=== PATIENT | female | born 1960 | race African-American/Black ===

== ENCOUNTER 2018-09-28 15:47 | Observation (INO) | payer BC ==
--- NOTE | 2018-09-28 16:33 | PDOC ---
Attending Attestation - Resident Resident Name: Caryl Ledezma - ED Attending Attestation I have performed the following: I have examined & evaluated the patient, The case was reviewed & discussed with the resident, I agree w/resident's findings & plan, Exceptions are as noted - HPI HPI: 09/28/18 16:32 57yo F hx ESRD s/p renal transplant 2002 c/b failure 2014, now on HD MWF, DM, HTN, HL, L BKA, R heel wound (follows with wound care) p/w tachycardia from HD. Pt is asymptomatic otherwise. HD staff would not dialyze pt due to her tachycardia. Last had full session of HD on Monday 2 days ago. Denies CP, SOB , fevers, chills, palpitations, abd pain, n/v/d. - Physicial Exam PE: 09/28/18 18:39 agree with resident exam - Medical Decision Making 09/28/18 19:30 57yo F with MMP including ESRD, DM, HTN presents to the ED with tachycardia. PT asymptomatic otherwise. Vitals remarkable for HR of 120s, BP high in 160s systolic, vitals otherwise unremarkable. EKG with accelerated junctional rhythm at 119, no P waves. No old EKGs to compare. Initial concern for hypokalemia so 2G Cagluconate given. Potassium returned at 5.4 which is mildly elevated but unlikely to cause EKG changes. Troponin 0.45. No previous trop to compare. Case discussed with Dr. Box for HD, recommends cardiology consult. EKG discussed with and reviewed by Dr. Adler who states pt is okay to get HD as it may correct tachycardia. Pt reports 3-4 seconds of CP as ambulating to commode which self resolved. HR at the time down to 70s, pending repeat EKG. Repeat trop down to 0.4 which argues against acute cardiac process. Case discussed with Dr. Hernandez, pt accepted for admission to Dr. Orozco Case discussed in detail with admitting physician including history, physical exam and ancillary studies. Admitting physician has assumed care for the patient, will follow all pending diagnostics and will complete the evaluation and treatment. *DC/Admit/Observation/Transfer Diagnosis at time of Disposition: ESRD (end stage renal disease), Chest pain, Tachycardia - Discharge Dispostion Condition at time of disposition: Stable Decision to Admit order: Yes - Referrals - Patient Instructions - Post Discharge Activity - Attestations Physician Attestion: 09/28/18 19:56 I, Dr. Cornelius Moss MD, attest that this document has been prepared under my direction and personally reviewed by me in its entirety. I further attest, that it accurately reflects all work, treatment, procedures and medical decision -making performed by me. Heart Score/ECG Review #1 09/28/18 18:39 Twelve-lead EKG was performed and reviewed by me. Accelerated junctional rhythm , rate 119. Left axis deviation. [address] depressions in [address] elevations. No previous EKGs to compare.
[2018-09-28] MEDS ORDERED: CALCIUM GLUCONATE 10% - 1,000 MG/10 ML VIAL IVPB ONE (16:36)
[2018-09-28 16:46] LABS: BASO % 0.4 % (0-2.0); EOS % 3.6 % (0-4.5); HEMATOCRIT 36.9 % (32.4-45.2); HEMOGLOBIN 11.5 GM/dL (10.7-15.3); LYMPH % 25.1 % (8-40); MCH 26.9 pg (25.7-33.7); MCHC 31.3 g/dl (32.0-36.0); MEAN CELL VOLUME 85.9 fl (80-96); MEAN PLT VOLUME 7.1 fl (7.5-11.1); MONO % 7.4 % (3.8-10.2); NEUT % 63.5 % (42.8-82.8); PLATELET COUNT 253 K/MM3 (134-434); WHITE BLOOD COUNT 5.4 K/mm3 (4.0-10.0)
[2018-09-28] MEDS ORDERED: CALCIUM GLUCONATE 10% - 1,000 MG/10 ML VIAL ONE (16:53)
--- NOTE | 2018-09-28 17:04 | PDOC ---
History of Present Illness - General Chief Complaint: Irregular Heart Beat Stated Complaint: CHEST PAIN Time Seen by Provider: 09/28/18 15:57 History Source: Patient Exam Limitations: No Limitations - History of Present Illness Initial Comments: 09/28/18 16:59 Pt is a 57yo f with PMH of ESRD on HD MWF (anuric), DM, HTN, Left BKA (2003) BIBA from dialysis for tachycardia. Pt says she has been going to all of her dialysis appointments but was sent to ED today because her heart rate was elevated. Pt says she feels fine. She is denying chest pain, SOB, headaches, lightheadedness, cough, fever, chills, new swelling in leg, pain in legs, history of blood clot, abdominal pain, n/v/d, distension. She was recently in rehab for a wound on her R foot. She is not on blood thinners. No recent travel , no recent surgeries in the past 3 months. PMD: Kirk Lens Grinder: Mukul PMH: see hpi PSH: Left BKA 2003, Kidney transplant 2002, R foot surgery Meds: insulin, lisinopril, simvastatin, ASA 81 Social: denies Allergies: nkda Past History - Past Medical History Allergies/Adverse Reactions: Allergies Allergy/AdvReac Type Severity Reaction Status Date / Time No Known Allergies Allergy Verified 09/28/18 16:34 Home Medications: Ambulatory Orders Amitriptyline HCl [Elavil -] 75 mg PO HS 09/28/18 Ascorbic Acid [Vitamin C -] 500 mg PO DAILY 09/28/18 Aspirin [ASA -] 81 mg PO DAILY 09/28/18 Calcium Acetate 667 mg PO TID 09/28/18 HYDROmorphone [Dilaudid -] 2 mg PO Q6H 09/28/18 Hydralazine HCl 50 mg PO DAILY 09/28/18 Insulin Glargine,Hum.rec.anlog [Basaglar Taurusikpen U-100] 5 unit SQ DAILY Lisinopril [Prinivil] 10 mg PO DAILY 09/28/18 Lisinopril [Prinivil] 10 mg PO HS 09/28/18 Magnesium Hydrox 2400MG/30Ml [Milk of Magnesia -] 5 ml PO ASDIR 09/28/18 Mesalamine 1.2 gm PO BID 09/28/18 Polyethylene Glycol 3350 [Miralax (For Daily Use) -] 17 gm PO DAILY 09/28/18 Simvastatin [Zocor -] 20 mg PO HS 09/28/18 Anemia: Yes COPD: No Diabetes: Yes Dialysis: Yes GI Disorders: Yes (ESRD) Other medical history: heptitis c - Suicide/Smoking/Psychosocial Hx Smoking History: Never smoked Have you smoked in the past 12 months: No Information on smoking cessation initiated: No Hx Alcohol Use: No Drug/Substance Use Hx: No Substance Use Type: None Review of Systems - Review of Systems Constitutional: No: Chills, Diaphoresis, Fever HEENTM: No: Symptoms Reported, Eye Pain, Blurred Vision, Tinnitus Respiratory: No: Cough, Shortness of Breath, Hemoptysis Cardiac (ROS): No: Chest Pain, Lightheadedness, Palpitations, Syncope ABD/GI: Yes: Constipated. No: Diarrhea, Nausea, Rectal Bleeding, Vomiting : Yes: Other (anuric) Musculoskeletal: No: Back Pain, Joint Pain, Muscle Pain, Neck Pain Integumentary: No: Symptoms Reported Neurological: No: Headache, Numbness, Paresthesia, Tingling, Tremors, Weakness *Physical Exam - Vital Signs Last Vital Signs Temp Pulse Resp BP Pulse Ox 97.9 F 120 H 20 164/96 100 09/28/18 15:47 09/28/18 15:47 09/28/18 15:47 09/28/18 15:47 09/28/18 15:47 - Physical Exam General Appearance: Yes: Appropriately Dressed, Obese. No: Apparent Distress HEENT: positive: EOMI, EMERY, Normal ENT Inspection Neck: positive: Trachea midline, Supple. negative: Carotid bruit, Lymphadenopathy (R), Lymphadenopathy (L) Respiratory/Chest: positive: Decreased Breath Sounds. negative: Crackles, Rales , Rhonchi, Stridor, Wheezing Cardiovascular: positive: S1, S2, Tachycardia. negative: Edema, JVD, Murmur Vascular Pulses: Carotid (R): 2+, Carotid (L): 2+, Dorsalis-Pedis (R): 1+ Gastrointestinal/Abdominal: positive: Normal Bowel Sounds, Distended. negative : Guarding, Rebound, Tenderness Musculoskeletal: positive: Other (L BKA). negative: CVA Tenderness Extremity: positive: Normal Capillary Refill, Swelling (up to R midcalf. 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, Fully Oriented, Alert, Normal Mood/ Affect, Normal Response, Motor Strength 03/24 ED Treatment Course - LABORATORY CBC & Chemistry Diagram: 09/28/18 16:36 09/28/18 16:36 - ADDITIONAL ORDERS Additional order review: 09/28/18 16:36 RBC 4.30 MCV 85.9 MCHC 31.3 L RDW 20.0 H MPV 7.1 L Neutrophils % 63.5 Lymphocytes % 25.1 Monocytes % 7.4 Eosinophils % 3.6 Basophils % 0.4 - RADIOLOGY Radiology Studies Ordered: Category Date Time Status CHEST X-RAY PORTABLE* [RAD] Stat Radiology 09/28/18 16:28 Ordered Medical Decision Making - Medical Decision Making 09/28/18 17:04 Pt is a 57yo f with PMH of ESRD on HD MWF (anuric), DM, HTN, Left BKA (2003) BIBA from dialysis for tachycardia. Pt says she has been going to all of her dialysis appointments but was sent to ED today because her heart rate was elevated. Pt says she feels fine. Vitals: Selected Entries 09/28/18 15:47 Temperature 97.9 F Pulse Rate 120 H Respiratory 20 Rate Blood Pressure 164/96 O2 Sat by Pulse 100 RA Oximetry (%) PE: L BKA. R heel clean wound (last wound check yesterday). Normal heart sounds, tachycardia. Decreased breath sounds DDx: acs, PE, pna, electrolyte abnormalities -EKG: No discernable p waves. tachycardia. Inverted T waves in I, aVL. Peaked T in V3? Cannot calculate [place]. QRS 96, QTc 483. No SO or depressions *No prior to compare to* Pt started on calcium gluconate. CBC, CMP, trop, cxr pending. 09/28/18 18:17 Laboratory Tests 09/28/18 09/28/18 09/28/18 16:36 16:36 16:36 WBC 5.4 Hgb 11.5 Hct 36.9 Plt Count 253 PT with INR 11.80 INR 1.00 PTT (Actin FS) 31.7 Sodium 137 Potassium 5.4 H BUN 89 H Creatinine 11.9 H* Random Glucose 122 H Calcium 8.8 Phosphorus > 9.0 H* Magnesium 2.8 H Alkaline Phosphatase 168 H Troponin I Albumin 3.2 L 09/28/18 16:36 WBC Hgb Hct Plt Count PT with INR INR PTT (Actin FS) Sodium Potassium BUN Creatinine Random Glucose Calcium Phosphorus Magnesium Alkaline Phosphatase Troponin I 0.45 H Albumin second troponin being drawn. PT will be admitted for ACS r/o and dialysis. PE on differential, low suspicion however because pt is saturating at 100% RA, not tachypenic, normotensive. No recent surgeries, no history of cancer. Is ambulatory with walker. 09/28/18 18:[address] Goldberg, recommended cards consult. 09/28/18 18:59 Dr. Adler called. Will trend trop. Pt now complaining of chest pain. Will give ASA. 09/28/18 19:05 Pt needed to use restroom, giving comode for pt to use, I am not comfortable with disconnecting her from monitor. HR 79. Will get repeat EKG 09/28/18 19:[address] Adler, can get HD. Thinks rhythm may correct after HD. Will call Dr. Box again. Will get pt to dialysis. 09/28/18 19:30 Pt trop sent. HR in 80s. 09/28/18 20:13 second trop 0.4. Pt admitted to Tele dialysis. 09/29/18 01:14 *DC/Admit/Observation/Transfer Diagnosis at time of Disposition: ESRD (end stage renal disease), Chest pain, Tachycardia - Discharge Dispostion Condition at time of disposition: Stable - Referrals - Patient Instructions - Post Discharge Activity
[2018-09-28 17:20] LABS: PROTHROMBIN TIME (PATIENT) 11.8 SEC (9.7-13.0)
[2018-09-28 17:22] LABS: ACTIVATED PTT 31.7 SECONDS (25.2-36.5)
[2018-09-28 17:52] LABS: CO2 22 mmol/L (22-28)
[2018-09-28 17:55] LABS: ALBUMIN 3.2 g/dl (3.4-5.0); ALK PHOS 168 U/L (45-117); ANION GAP 14 MMOL/L (8-16); BILIRUBIN,TOTAL 0.3 mg/dL (0.2-1); BLOOD UREA NITROGEN 89 mg/dL (7-18); CALCIUM 8.8 mg/dL (8.5-10.1); CHLORIDE 101 mmol/L (98-107); GLUCOSE,RANDOM 122 mg/dL (74-106); MAGNESIUM 2.8 mg/dL (1.8-2.4); POTASSIUM 5.4 mmol/L (3.5-5.1); SGOT/AST 18 U/L (15-37); SGPT/ALT 22 U/L (13-61); SODIUM 137 mmol/L (136-145); TOT PROT 7.6 g/dl (6.4-8.2)
[2018-09-28 17:59] LABS: CREATININE 11.9 mg/dL (0.55-1.3); PHOSPHOROUS > 9.0 mg/dL (2.5-4.9)
[2018-09-28] MEDS ORDERED: ASPIRIN 81 MG CHEWABLE TABLETS PO ONE (18:58)
--- NOTE | 2018-09-28 19:36 | PDOC ---
*Physical Exam - Vital Signs Last Vital Signs Temp Pulse Resp BP Pulse Ox 97.9 F 120 H 20 164/96 100 09/28/18 15:47 09/28/18 15:47 09/28/18 15:47 09/28/18 15:47 09/28/18 15:47 ED Treatment Course - LABORATORY CBC & Chemistry Diagram: 09/28/18 16:36 09/28/18 16:36 - ADDITIONAL ORDERS Additional order review: Laboratory Results 09/28/18 09/28/18 09/28/18 16:36 16:36 16:36 PT with INR 11.80 INR 1.00 PTT (Actin FS) 31.7 Sodium 137 Potassium 5.4 H Chloride 101 Carbon Dioxide 22 Anion Gap 14 BUN 89 H Creatinine 11.9 H* Creat Clearance w eGFR 3.28 Random Glucose 122 H Calcium 8.8 Phosphorus > 9.0 H* Magnesium 2.8 H Total Bilirubin 0.3 AST 18 ALT 22 Alkaline Phosphatase 168 H Troponin I 0.45 H Total Protein 7.6 Albumin 3.2 L 09/28/18 16:36 RBC 4.30 MCV 85.9 MCHC 31.3 L RDW 20.0 H MPV 7.1 L Neutrophils % 63.5 Lymphocytes % 25.1 Monocytes % 7.4 Eosinophils % 3.6 Basophils % 0.4 - Medications Given in the ED: ED Medications Discontinued Medications Generic Name Dose Route Start Last Admin Trade Name Freq PRN Reason Stop Dose Admin Calcium Gluconate 2,000 mg 09/28/18 16:36 09/28/18 17:04 Calcium Gluconate 10% - IVPB 09/28/18 16:37 2,000 mg ONCE ONE Administration Medical Decision Making - Medical Decision Making 09/28/18 19:35 I received pt on signout. Pt was in accelerated juntional rhythm. Unclear what the cause of the rhythm is. However, pt converted, now repeat EKG shows 1st degree AV block with a HR of 77. Pt will be admitted, and Dr. Box agrees that pt will get dialyzed in the hospital during this admission. 09/29/18 04:48 *DC/Admit/Observation/Transfer Diagnosis at time of Disposition: ESRD (end stage renal disease), Chest pain, Tachycardia - Discharge Dispostion Condition at time of disposition: Stable - Referrals - Patient Instructions - Post Discharge Activity
--- NOTE | 2018-09-28 19:52 | PN ---
Teaching Attending Note Name of Resident: Hero Hernandez ATTENDING PHYSICIAN STATEMENT I saw and evaluated the patient. I reviewed the resident's note and discussed the case with the resident. I agree with the resident's findings and plan as documented. SUBJECTIVE: Patient is a 57 year old woman with history of ESRD, failed kidney transplant now on HD MWF, NIDDM, HTN, HLD, Left BKA (2003) and right heel ulcer brought from [facility] for tachycardia. She was sent to ER today because her heart rate was elevated and she was not dialyzed. Says she feels fine. She is denying chest pain, SOB, headaches, lightheadedness, cough, fever, chills, new swelling in leg, pain in legs, history of blood clot, abdominal pain or vomiting. She was recently in Rehab for a wound on her Right foot. She is not on blood thinners. No recent travel, no recent surgeries in the past 3 months. Initial EKG in the ER showed accelerated junctional rhythm, rate 119. Subsequently she reverted to NSR without any treatment. OBJECTIVE: Alert Vital Signs Period Temp Pulse Resp BP Sys/Pillai Pulse Ox Last 24 Hr 97.9 F 120 20 164/96 100 HEENT: No Jaundice, eye redness or discharge, PERRLA, EOMI. Normocephalic, atraumatic. External ears are normal and hearing is grossly intact. No nasal discharge. Neck: Supple, nontender. No palpable adenopathy or thyromegaly. No JVD Chest: Good effort. Clear to auscultation and percussion. Heart: Regular. No S3 or rub; 2/6 SHABBIR Abdomen: Not distended, soft, nontender and no HSM. No rebound or guarding. Normoactive bowel sounds. Ext: Peripheral pulses intact. Left BKA, right heel ulcer. Skin: Warm and dry. No petechiae, rash or ecchymosis. Neuro: Alert. Oriented x3. CN 2-12 grossly intact. Sensation grossly intact in all four extremities and DTR are symmetric. Home Medications Medication Instructions Recorded Amitriptyline HCl [Elavil -] 75 mg PO HS 09/28/18 Ascorbic Acid [Vitamin C -] 500 mg PO DAILY 09/28/18 Aspirin [ASA -] 81 mg PO DAILY 09/28/18 Calcium Acetate 667 mg PO TID 09/28/18 HYDROmorphone [Dilaudid -] 2 mg PO Q6H 09/28/18 Hydralazine HCl 50 mg PO DAILY 09/28/18 Insulin Glargine,Hum.rec.anlog 5 unit SQ DAILY 09/28/18 [Basagltracee Bradleypen U-100] Lisinopril [Prinivil] 10 mg PO DAILY 09/28/18 Lisinopril [Prinivil] 10 mg PO HS 09/28/18 Magnesium Hydrox 2400MG/30Ml [Milk 5 ml PO ASDIR 09/28/18 of Magnesia -] Mesalamine 1.2 gm PO BID 09/28/18 Polyethylene Glycol 3350 [Miralax 17 gm PO DAILY 09/28/18 (For Daily Use) -] Simvastatin [Zocor -] 20 mg PO HS 09/28/18 Abnormal Lab Results 09/28/18 09/28/18 09/28/18 16:36 16:36 16:36 MCHC 31.3 L RDW 20.0 H MPV 7.1 L Potassium 5.4 H BUN 89 H Creatinine 11.9 H* Random Glucose 122 H Phosphorus > 9.0 H* Magnesium 2.8 H Alkaline Phosphatase 168 H Troponin I 0.45 H Albumin 3.2 L ASSESSMENT AND PLAN: 1. Rule out ACS - In view of tachycardia and elevated initial troponin (0.45) will admit to Telemetry to rule out ACS. No significant ST-T changes on EKG. Get ECHO and consult cardiology. Will restart her home antihypertensive medications. Consult Nephrology to arrange for dialysis LUCAS and stress adequate dialytic fluid removal to control hypertension. There are no changes of toxic hyperkalemia on EKG. Ensure that she gets phosphate binders with meals. 2. Hypoalbuminemia - Possibly due to combined effects of malnutrition and inflammation associated with her comorbid chronic conditions. Will ensure adequate dietary protein intake of at least 1.5 gm/Kg BW per day. Consult quality control checker. 3. DM - For now, we will hold the home diabetes drugs and implement sliding scale insulin regimen. Provide comprehensive diabetes care with patient teaching and counseling about the importance of euglycemia, eye care and foot care. 4. Obesity - Will provide patient all the necessary assistance, counseling and positive reinforcement to facilitate weight loss. Consult quality control checker. 5. DVT prophylaxis - Heparin 5000u sq tid. 6. Advance directives - Full code
[2018-09-28] MEDS ORDERED: ASPIRIN 81 MG CHEWABLE TABLETS ONE (20:25)
--- NOTE | 2018-09-28 20:45 | CONSULT ---
Consult Consult Specialty:: Nephrology Reason for Consultation:: ESRD on HD - History of Present Illness Chief Complaint: sent in for tachycardia History of Present Illness: Pt is a 57 year old female with pmhx of kidney transplant in 2002, ESRD on HD, DM, HTN, HLD, left BKA and CHF who was sent in from HD for tachyardia. She is awake and alert. SHe denies shortness of breath. She denies chest pain and she denies palpitations. Her last HD session was on Monday. She denies fevers or chills. SHe is accompanied with her . I also called her daughter for history. Pt goes to HD at the [facility] unit. She was found to have a junctional rythm. Cardiology did evaluate the ECG and recommended HD therapy. Pts rate is now in the 70s. - History Source History Provided By: Patient - Past Medical History Cardio/Vascular: Yes: CAD, CHF, HTN Renal/: Yes: Renal Failure, Hemodialysis Musculoskeletal: Yes: Other (left bka) Endocrine: Yes: Diabetes Mellitus - Alcohol/Substance Use Hx Alcohol Use: No - Smoking History Smoking history: Never smoked Have you smoked in the past 12 months: No Home Medications - Allergies Allergies/Adverse Reactions: Allergies Allergy/AdvReac Type Severity Reaction Status Date / Time No Known Allergies Allergy Verified 09/28/18 16:34 - Home Medications Home Medications: Ambulatory Orders Amitriptyline HCl [Elavil -] 75 mg PO HS 09/28/18 Ascorbic Acid [Vitamin C -] 500 mg PO DAILY 09/28/18 Aspirin [ASA -] 81 mg PO DAILY 09/28/18 Calcium Acetate 667 mg PO TID 09/28/18 HYDROmorphone [Dilaudid -] 2 mg PO Q6H 09/28/18 Hydralazine HCl 50 mg PO DAILY 09/28/18 Insulin Glargine,Hum.rec.anlog [Basaglar Kwikpen U-100] 5 unit SQ DAILY Lisinopril [Prinivil] 10 mg PO DAILY 09/28/18 Lisinopril [Prinivil] 10 mg PO HS 09/28/18 Magnesium Hydrox 2400MG/30Ml [Milk of Magnesia -] 5 ml PO ASDIR 09/28/18 Mesalamine 1.2 gm PO BID 09/28/18 Polyethylene Glycol 3350 [Miralax (For Daily Use) -] 17 gm PO DAILY 09/28/18 Simvastatin [Zocor -] 20 mg PO HS 09/28/18 Family Disease History - Family Disease History Family History: Denies Review of Systems - Review of Systems Constitutional: reports: No Symptoms Eyes: reports: No Symptoms HENT: reports: No Symptoms Neck: reports: No Symptoms Cardiovascular: reports: No Symptoms Respiratory: reports: No Symptoms Gastrointestinal: reports: No Symptoms Genitourinary: reports: No Symptoms Musculoskeletal: reports: No Symptoms Integumentary: reports: No Symptoms Neurological: reports: No Symptoms Endocrine: reports: No Symptoms Hematology/Lymphatic: reports: No Symptoms Psychiatric: reports: No Symptoms Physical Exam Vital Signs: Vital Signs Temperature 97.9 F 09/28/18 15:47 Pulse Rate 120 H 09/28/18 15:47 Respiratory Rate 20 09/28/18 15:47 Blood Pressure 164/96 09/28/18 15:47 O2 Sat by Pulse Oximetry (%) 100 09/28/18 15:47 Constitutional: Yes: Calm Eyes: Yes: Conjunctiva Clear HENT: Yes: Atraumatic Cardiovascular: Yes: S1, S2 Respiratory: Yes: CTA Bilaterally Gastrointestinal: Yes: Soft, Abdomen, Obese Renal/: Yes: WNL Musculoskeletal: Yes: Other (left bka) Edema: Yes Edema: RLE: 1+ Neurological: Yes: Oriented Psychiatric: Yes: Oriented Labs: CBC, BMP 09/28/18 16:36 09/28/18 16:36 Laboratory Tests 09/28/18 09/28/18 16:36 16:36 Hgb 11.5 Sodium 137 Potassium 5.4 H BUN 89 H Creatinine 11.9 H* Imaging - Results Chest X-ray: Report Reviewed Problem List - Problems (1) ESRD (end stage renal disease) Code(s): N18.6 - END STAGE RENAL DISEASE (2) CHF (congestive heart failure) Code(s): I50.9 - HEART FAILURE, UNSPECIFIED (3) Hyperkalemia Code(s): E87.5 - HYPERKALEMIA Assessment/Plan Impression 1. ESRD 2. hyperkalemia 3. HTN 4. CAD 5. failed kidney transplant 6. tachycardia with junctional rythm 7. DM 8. HLD Plan - will arrange for urgent HD - admit pt to monitored unit - will dialyze at bedside in tele - rate is improved - monitor bp closely - resume phos binders - check phos levels - will UF volume as she has congestion on cxr
--- NOTE | 2018-09-28 21:12 | HP ---
CHIEF COMPLAINT:sent from dialysis PCP: HISTORY OF PRESENT ILLNESS: 57 F with PMHx ESRD( HD MWF),DM, and HTN sent from Dialysis Center for tachycardia. Dialysis was not done secondary to elevated HR. She has no complaints. She was recently in discharged from Rehab 2 weeks ago for a wound on her Right foot. She denies CP,MCKENNA, SOB, abdominal pain, nausea, vomiting, fever, chills, or palpitations. No recent illness or sick contacts. She is sent here for urgent dialysis. ER course was notable for: (1)EKG show accelertaed junctional rythm (2)K+= 5.5 given calcium gluconate (3) Recent Travel:denies PAST MEDICAL HISTORY: DM, ESRD (HD MWF), HTN, HLD PAST SURGICAL HISTORY:Left BKA, right foot debridement x2, Lower ext. vein graft , Renal transplant Social History: Smoking:never Alcohol:denies Drugs: denies Family History: Allergies No Known Allergies Allergy (Verified 09/28/18 16:34) HOME MEDICATIONS: Home Medications Medication Instructions Recorded Amitriptyline HCl [Elavil -] 75 mg PO HS 09/28/18 Ascorbic Acid [Vitamin C -] 500 mg PO DAILY 09/28/18 Aspirin [ASA -] 81 mg PO DAILY 09/28/18 Calcium Acetate 667 mg PO TID 09/28/18 HYDROmorphone [Dilaudid -] 2 mg PO Q6H 09/28/18 Hydralazine HCl 50 mg PO DAILY 09/28/18 Insulin Glargine,Hum.rec.anlog 5 unit SQ DAILY 09/28/18 [Basaglar Kwikpen U-100] Lisinopril [Prinivil] 10 mg PO DAILY 09/28/18 Lisinopril [Prinivil] 10 mg PO HS 09/28/18 Magnesium Hydrox 2400MG/30Ml [Milk 5 ml PO ASDIR 09/28/18 of Magnesia -] Mesalamine 1.2 gm PO BID 09/28/18 Polyethylene Glycol 3350 [Miralax 17 gm PO DAILY 09/28/18 (For Daily Use) -] Simvastatin [Zocor -] 20 mg PO HS 09/28/18 REVIEW OF SYSTEMS CONSTITUTIONAL: Absent: fever, chills, diaphoresis, generalized weakness, malaise, loss of appetite, weight change HEENT: Absent: rhinorrhea, nasal congestion, throat pain, throat swelling, difficulty swallowing, mouth swelling, ear pain, eye pain, visual changes CARDIOVASCULAR: Absent: chest pain, syncope, palpitations, irregular heart rate, lightheadedness , peripheral edema RESPIRATORY: Absent: cough, shortness of breath, dyspnea with exertion, orthopnea, wheezing, stridor, hemoptysis GASTROINTESTINAL: Absent: abdominal pain, abdominal distension, nausea, vomiting, diarrhea, constipation, melena, hematochezia GENITOURINARY: Absent: dysuria, frequency, urgency, hesitancy, hematuria, flank pain, genital pain MUSCULOSKELETAL: Absent: myalgia, arthralgia, joint swelling, back pain, neck pain SKIN: Absent: rash, itching, pallor HEMATOLOGIC/IMMUNOLOGIC: Absent: easy bleeding, easy bruising, lymphadenopathy, frequent infections ENDOCRINE: Absent: unexplained weight gain, unexplained weight loss, heat intolerance, cold intolerance NEUROLOGIC: Absent: headache, focal weakness or paresthesias, dizziness, unsteady gait, seizure, mental status changes, bladder or bowel incontinence PSYCHIATRIC: Absent: anxiety, depression, suicidal or homicidal ideation, hallucinations. PHYSICAL EXAMINATION Vital Signs - 24 hr 09/28/18 09/28/18 15:47 20:48 Temperature 97.9 F Pulse Rate 120 H Respiratory 20 Rate Blood Pressure 164/96 O2 Sat by Pulse 100 99 Oximetry (%) GENERAL: AAOx3, NAD HEAD: NCAT EYES: PERRLA,EOMI sclera anicteric, conjunctiva clear. No lid lag. EARS, NOSE, THROAT: Moist mucous membranes. NECK: Supple without lymphadenopathy, JVD, or masses. LUNGS: CTAB, No wheezes, and no crackles. No accessory muscle use. HEART: RRR, normal S1 and S2 without murmur, rub or gallop. ABDOMEN: Soft,obese, nontender, not distended, normoactive bowel sounds, no guarding, no rebound, no masses. No hepatomegaly or splenomegaly. MUSCULOSKELETAL: left bka, no CVA tenderness. UPPER EXTREMITIES: fistula RUE LOWER EXTREMITIES: Left BKA, right heal ulcer, 40cm scar on right leg from vein graft. NEUROLOGICAL: Cranial nerves II-XII intact. Normal speech. PSYCHIATRIC: Cooperative. Good eye contact. Appropriate mood and affect. Laboratory Results - last 24 hr 09/28/18 09/28/1809/28/18 16:36 16:36 16:36 WBC 5.4 RBC 4.30 Hgb 11.5 Hct 36.9 MCV 85.9 MCH 26.9 MCHC 31.3 L RDW 20.0 H Plt Count 253 MPV 7.1 L Absolute Neuts (auto) 3.4 Neutrophils % 63.5 Lymphocytes % 25.1 Monocytes % 7.4 Eosinophils % 3.6 Basophils % 0.4 Nucleated RBC % 0 PT with INR 11.80 INR 1.00 PTT (Actin FS) 31.7 Sodium 137 Potassium 5.4 H Chloride 101 Carbon Dioxide 22 Anion Gap 14 BUN 89 H Creatinine 11.9 H* Creat Clearance w eGFR 3.28 Random Glucose 122 H Calcium 8.8 Phosphorus > 9.0 H* Magnesium 2.8 H Total Bilirubin 0.3 AST 18 ALT 22 Alkaline Phosphatase 168 H Troponin I Total Protein 7.6 Albumin 3.2 L 09/28/18 09/28/18 16:36 19:26 WBC RBC Hgb Hct MCV MCH MCHC RDW Plt Count MPV Absolute Neuts (auto) Neutrophils % Lymphocytes % Monocytes % Eosinophils % Basophils % Nucleated RBC % PT with INR INR PTT (Actin FS) Sodium Potassium Chloride Carbon Dioxide Anion Gap BUN Creatinine Creat Clearance w eGFR Random Glucose Calcium Phosphorus Magnesium Total Bilirubin AST ALT Alkaline Phosphatase Troponin I 0.45 H 0.40 H Total Protein Albumin ASSESSMENT/PLAN: 57 year old woman with history of ESRD, 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 Problem List - Problem (1) Elevated troponin Assessment/Plan: Will r/o ACS * place on telemetry * repeat troponin I Q6h * Cardiology consult * repeat EKG in AM (2) ESRD (end stage renal disease) Assessment/Plan: will go for emergent dialysis * Nephrology consult appreciated. * continue phosphate binders. (3) Hyperkalemia Assessment/Plan: given calcium gluconate in ED. * Will by dialyzed now * repeat BMP in AM (4) HTN (hypertension) Assessment/Plan: * Hydralazine HCl (Apresoline -) 50 mg PO DAILY * Lisinopril held * monitor BP (5) HLD (hyperlipidemia) Assessment/Plan: continue Statin therapy. (6) DM type 2 causing ESRD Assessment/Plan: will be dialyzed today. * ADA diet * BGM ACHS * ISS ACHS (7) DVT prophylaxis Assessment/Plan: heparin 5000units TID Visit type - Emergency Visit Emergency Visit: Yes ED Registration Date: 09/28/18 Care time: The patient presented to the Emergency Department on the above date and was hospitalized for further evaluation of their emergent condition. - New Patient This patient is new to me today: Yes Date on this admission: 10/01/18 - Critical Care Critical Care patient: No
[2018-09-28] MEDS: CALCIUM ACETATE 667 MG CAPSULE (FP) PO SCH (22:00)
[2018-09-28] MEDS ORDERED: PATIENT'S OWN MEDICATION (NON-FORMULARY) (Mesalamine [Mesalamine] 1.2 GM) PO SCH (22:00)
[2018-09-28] MEDS: HYDROmorphone HCL 2 MG TABLET PO SCH (22:00)
[2018-09-28] MEDS: AMITRIPTYLINE HCL 75 MG TABLET PO SCH (22:00)
[2018-09-28] MEDS: ATORVASTATIN CA 10 MG TABLET (FP) PO SCH (22:00)
[2018-09-28] MEDS: INSULIN SLIDING SCALE (NOVOLOG) 1 VIAL SQ SCH (22:00)
[2018-09-28] MEDS ORDERED: SODIUM CHLORIDE 250 ML IV PRN (22:28)
[2018-09-29] MEDS: HYDROmorphone HCL 2 MG TABLET PO SCH ×4 (02:07→22:27)
[2018-09-29 03:47] VITALS: BMI 39.9
[2018-09-29] MEDS: INSULIN SLIDING SCALE (NOVOLOG) 1 VIAL SQ SCH ×4 (06:15→22:31)
[2018-09-29] MEDS: CALCIUM ACETATE 667 MG CAPSULE (FP) PO SCH ×3 (06:16→22:27)
[2018-09-29] MEDS: HEPARIN NA (PORCINE) 5,000 UNITS/ML 1ML VIAL SQ SCH ×3 (06:16→22:28)
[2018-09-29 07:36] LABS: BASO % 0.7 % (0-2.0); EOS % 3.9 % (0-4.5); HEMATOCRIT 32.7 % (32.4-45.2); LYMPH % 34.1 % (8-40); MCH 26.2 pg (25.7-33.7); MCHC 30.7 g/dl (32.0-36.0); MEAN CELL VOLUME 85.1 fl (80-96); MEAN PLT VOLUME 7.1 fl (7.5-11.1); MONO % 9.5 % (3.8-10.2); NEUT % 51.8 % (42.8-82.8); PLATELET COUNT 205 K/MM3 (134-434); RBC 3.83 M/mm3 (3.60-5.2); WHITE BLOOD COUNT 4.2 K/mm3 (4.0-10.0)
[2018-09-29 08:17] LABS: ALBUMIN 2.8 g/dl (3.4-5.0); ALK PHOS 172 U/L (45-117); ANION GAP 10 MMOL/L (8-16); BILIRUBIN,TOTAL 0.3 mg/dL (0.2-1); BLOOD UREA NITROGEN 52 mg/dL (7-18); CALCIUM 8.1 mg/dL (8.5-10.1); CHLORIDE 101 mmol/L (98-107); CO2 27 mmol/L (21-32); GLUCOSE,RANDOM 188 mg/dL (74-106); MAGNESIUM 2.2 mg/dL (1.8-2.4); PHOSPHOROUS 6.6 mg/dL (2.5-4.9); POTASSIUM 4.3 mmol/L (3.5-5.1); SGOT/AST 17 U/L (15-37); SGPT/ALT 20 U/L (13-61); SODIUM 138 mmol/L (136-145); TOT PROT 6.9 g/dl (6.4-8.2)
[2018-09-29 08:36] LABS: CREATININE 8.1 mg/dL (0.55-1.3)
--- NOTE | 2018-09-29 08:56 | PN ---
Physical Exam: SUBJECTIVE: Patient seen and examined at bed side , had urgent HD session last night with no complication denies any fever,chills, N/V/D/C. Cr today 8.1 after HD , next on Monday OBJECTIVE: Vital Signs Period Temp Pulse Resp BP Sys/Pillai Pulse Ox Last 24 Hr 97.1 F-98.3 F 63-120 18-21 134-189/52-96 98-100 GENERAL: AAOx3 in NAD HEAD: NC/AT EYES: PERRL, extraocular movements intact, sclera anicteric, ENT:moist mucous membranes. NECK:supple. FROM LUNGS: CTA B/L , no wheezes, no crackles, no accessory muscle use. HEART: Regular rate and rhythm, S1, S2 , 2/6 systolic murmur RUSB ,No rub or gallop. ABDOMEN: Obese , Soft, ND,NT , normoactive bowel sounds, no guarding, no rebound, EXTREMITIES: , warm, well-perfused, right leg +2 edema. Left DKA , right ankle with wound covered with gauze NEUROLOGICAL: no focal deficit . Normal speech, PSYCH: Normal mood, normal affect. SKIN: Warm, dry, normal turgor, Laboratory Results - last 24 hr 09/28/18 09/28/18 09/28/18 16:36 16:36 16:36 WBC 5.4 RBC 4.30 Hgb 11.5 Hct 36.9 MCV 85.9 MCH 26.9 MCHC 31.3 L RDW 20.0 H Plt Count 253 MPV 7.1 L Absolute Neuts (auto) 3.4 Neutrophils % 63.5 Lymphocytes % 25.1 Monocytes % 7.4 Eosinophils % 3.6 Basophils % 0.4 Nucleated RBC % 0 PT with INR 11.80 INR 1.00 PTT (Actin FS) 31.7 Sodium 137 Potassium 5.4 H Chloride 101 Carbon Dioxide 22 Anion Gap 14 BUN 89 H Creatinine 11.9 H* Creat Clearance w eGFR 3.28 POC Glucometer Random Glucose 122 H Calcium 8.8 Phosphorus > 9.0 H* Magnesium 2.8 H Total Bilirubin 0.3 AST 18 ALT 22 Alkaline Phosphatase 168 H Troponin I Total Protein 7.6 Albumin 3.2 L 09/29/18 09/29/18 09/29/18 06:13 07:15 07:15 WBC 4.2 RBC 3.83 Hgb 10.0 L Hct 32.7 MCV 85.1 MCH 26.2 MCHC 30.7 L RDW 20.0 H Plt Count 205 MPV 7.1 L Absolute Neuts (auto) 2.2 Neutrophils % 51.8 Lymphocytes % 34.1 D Monocytes % 9.5 Eosinophils % 3.9 Basophils % 0.7 Nucleated RBC % 0 PT with INR INR PTT (Actin FS) Sodium 138 Potassium 4.3 Chloride 101 Carbon Dioxide 27 Anion Gap 10 BUN 52 H Creatinine 8.1 H* Creat Clearance w eGFR 5.11 POC Glucometer 233 Random Glucose 188 H Calcium 8.1 L Phosphorus 6.6 H Magnesium 2.2 Total Bilirubin 0.3 AST 17 ALT 20 Alkaline Phosphatase 172 H Troponin I Total Protein 6.9 Albumin 2.8 L Active Medications Generic Name Dose Route Start Last Admin Trade Name Freq PRN Reason Stop Dose Admin Amitriptyline HCl 75 mg 09/28/18 22:00 09/28/18 22:00 Elavil - PO Not Given HS MILADIS Ascorbic Acid 500 mg 09/29/18 10:00 Vitamin C - PO DAILY [facility] Aspirin 81 mg 09/29/18 10:00 Asa - PO DAILY [facility] Atorvastatin Calcium 10 mg 09/28/18 22:00 09/28/18 22:00 Lipitor - PO Not Given HS [facility]ADIS Calcium Acetate 667 mg 09/28/18 22:00 09/29/18 06:16 Phoslo - PO 667 mg TID [facility]IS Administration Heparin Sodium (Porcine) 5,000 unit 09/29/18 06:00 09/29/18 06:16 Heparin - SQ 5,000 unit TID [facility] Administration Hydralazine HCl 50 mg 09/29/18 10:00 Apresoline - PO DAILY [facility] Hydromorphone HCl 2 mg 09/28/18 21:00 09/29/18 02:07 Dilaudid - PO 2 mg Q6H [facility] Administration Sodium Chloride 250 mls @ 3,000 mls/hr 09/28/18 22:28 Normal Saline - IV 09/29/18 22:27 PRN PRN Hypotension during Dialysis Insulin Aspart 1 vial 09/28/18 22:00 09/29/18 06:15 Novolog Vial Sliding Scale - SQ 4 units ACHS [facility]ADIS Administration Protocol Non-Formulary Medication 1.2 gm 09/28/18 22:00 Mesalamine [Mesalamine] PO BID [facility]IS Polyethylene Glycol 17 gm 09/29/18 10:00 Miralax (For Daily Use) - PO DAILY [facility]IS CBC, BMP 09/29/18 07:15 09/29/18 07:15 ASSESSMENT/PLAN: 57 year old woman with history of ESRD, 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 #Elevated troponin, likely demand ischemia , Will r/o ACS * place on telemetry * repeat troponin I Q6h * Cardiology consult * repeat EKG in AM # Junctional Rhythm * noted on monitor * cardiology consulted recommend No BB and rythm monitor as out pt * EKG NSR with first degree AV block # ESRD (end stage renal disease) * emergent dialysis * next HD Monday * renal diet * Nephrology consult appreciated. Dr. Box * monitor volume status # Hyperkalemia, resolved after HD * given calcium gluconate in ED. * repeat BMP in AM #HTN (hypertension) * Hydralazine HCl (Apresoline -) 50 mg PO DAILY * Lisinopril held * monitor BP closely #HLD (hyperlipidemia) * continue Statin therapy. #DM type 2 * Had HD last night * ADA diet * BGM ACHS * ISS ACHS #DVT prophylaxis * heparin 5K units TID #Dispo : * monitor on tele * possible Dc tomorrow pending cardiology clearance Visit type - Emergency Visit Emergency Visit: Yes ED Registration Date: 09/28/18 Care time: The patient presented to the Emergency Department on the above date and was hospitalized for further evaluation of their emergent condition. - New Patient This patient is new to me today: Yes Date on this admission: 09/29/18 - Critical Care Critical Care patient: No - Discharge Referral Referred to [facility] No
[2018-09-29] MEDS: ASPIRIN 81 MG CHEWABLE TABLETS PO SCH (10:47)
[2018-09-29] MEDS: ASCORBIC ACID 500 MG TABLET (FP) PO SCH (10:48)
[2018-09-29] MEDS: hydrALAZINE HCL 50 MG TABLET (FP) PO SCH (10:48)
[2018-09-29] MEDS: POLYETHYLENE GLYCOL 3350 119 GM BTL PO SCH (10:50)
--- NOTE | 2018-09-29 14:43 | CON.CARD ---
Consult Consult Specialty:: Cardiology Reason for Consultation:: Tachycardia at the dialysis center - History of Present Illness Chief Complaint: Tachycardia at the dialysis center History of Present Illness: This is a 57 year old female with ESRD and is s/p renal transplant 2002 which failed in 2014, now on HD, PMH of M, HTN, HL, L BKA, R heel wound. She was sent from a dialysis center with junctional tachycardia. Dialysis last night was hemodynamically tolerated. K+ was 5.4. Trops 0.4, 0.42, and 0.34 . - Past Medical History Cardio/Vascular: Yes: CAD, CHF, HTN Renal/: Yes: Renal Failure, Hemodialysis ...: No Musculoskeletal: Yes: Other (left bka) Endocrine: Yes: Diabetes Mellitus - Alcohol/Substance Use Hx Alcohol Use: No - Smoking History Smoking history: Never smoked Have you smoked in the past 12 months: No Home Medications - Allergies Allergies/Adverse Reactions: Allergies Allergy/AdvReac Type Severity Reaction Status Date / Time No Known Allergies Allergy Verified 09/28/18 16:34 - Home Medications Home Medications: Ambulatory Orders Amitriptyline HCl [Elavil -] 75 mg PO HS 09/28/18 Ascorbic Acid [Vitamin C -] 500 mg PO DAILY 09/28/18 Aspirin [ASA -] 81 mg PO DAILY 09/28/18 Calcium Acetate 667 mg PO TID 09/28/18 HYDROmorphone [Dilaudid -] 2 mg PO Q6H 09/28/18 Hydralazine HCl 50 mg PO DAILY 09/28/18 Insulin Glargine,Hum.rec.anlog [Basaglar Kwikpen U-100] 5 unit SQ DAILY Lisinopril [Prinivil] 10 mg PO DAILY 09/28/18 Lisinopril [Prinivil] 10 mg PO HS 09/28/18 Magnesium Hydrox 2400MG/30Ml [Milk of Magnesia -] 5 ml PO ASDIR 09/28/18 Mesalamine 1.2 gm PO BID 09/28/18 Polyethylene Glycol 3350 [Miralax (For Daily Use) -] 17 gm PO DAILY 09/28/18 Simvastatin [Zocor -] 20 mg PO HS 09/28/18 Review of Systems Findings/Remarks: As per HPI Vital Signs: Vital Signs Temperature 97.9 F 09/29/18 10:53 Pulse Rate 67 09/29/18 10:53 Respiratory Rate 18 09/29/18 10:53 Blood Pressure 142/73 09/29/18 10:53 O2 Sat by Pulse Oximetry (%) 98 09/29/18 04:51 Constitutional: Yes: No Distress Eyes: Yes: WNL HENT: Yes: WNL Neck: Yes: WNL Respiratory: Yes: CTA Bilaterally Gastrointestinal: Yes: Normal Bowel Sounds Cardiovascular: Yes: Regular Rate and Rhythm (NL S1S2, No MRHG) JVD: No Extremities: Yes: Other (Left BKA) Neurological: Yes: Alert, Oriented - Other Data Labs, Other Data: CBC, BMP 09/29/18 07:15 09/29/18 07:15 INR, PTT INR 1.00 (0.83-1.09) 09/28/18 16:36 Troponin, BNP 09/28/18 09/28/18 09/29/18 16:36 19:26 03:00 Troponin I 0.45 H 0.40 H 0.42 H 09/29/18 07:15 Troponin I 0.34 H Troponin, BNP 09/28/18 09/28/18 09/29/18 16:36 19:26 03:00 Troponin I 0.45 H 0.40 H 0.42 H 09/29/18 07:15 Troponin I 0.34 H Assessment/Plan 57 year old female with ESRD and is s/p renal transplant 2002 which failed in 2014, now on HD, PMH of M, HTN, HL, L BKA, R heel wound. She was sent from a dialysis center with junctional tachycardia. Dialysis last night was hemodynamically tolerated. K+ was 5.4. Trops 0.4, 0.42, and 0.34 Junctional Tachycardia May have been secondary to electrolyte fluxes Presently in NSR with first degree AVB Recommend out patient event monitoring to determine how often she has junctional tachycardia Would not start beta blockers because of the relatively slow sinus HR and 1st AVB. Elevated trops Most likely demand ischemia and not an acute coronary syndrome Continue secondary prevention with statin and ASA
--- NOTE | 2018-09-29 15:45 | PN ---
Progress Note, Physician History of Present Illness: Pt seen and examined at bedside. She denies chest pain or shortness of breath. - Current Medication List Current Medications: Active Medications Amitriptyline HCl (Elavil -) 75 mg PO [facility] Last Admin: 09/28/18 22:00 Dose: Not Given Ascorbic Acid (Vitamin C -) 500 mg PO DAILY [facility] Last Admin: 09/29/18 10:48 Dose: 500 mg Aspirin (Asa -) 81 mg PO DAILY [facility] Last Admin: 09/29/18 10:47 Dose: 81 mg Atorvastatin Calcium (Lipitor -) 10 mg PO HS [facility] Last Admin: 09/28/18 22:00 Dose: Not Given Calcium Acetate (Phoslo -) 667 mg PO TID [facility] Last Admin: 09/29/18 14:54 Dose: 667 mg Heparin Sodium (Porcine) (Heparin -) 5,000 unit SQ TID [facility] Last Admin: 09/29/18 14:54 Dose: 5,000 unit Hydralazine HCl (Apresoline -) 50 mg PO DAILY [facility] Last Admin: 09/29/18 10:48 Dose: 50 mg Hydromorphone HCl (Dilaudid -) 2 mg PO Q6H [facility] Last Admin: 09/29/18 10:47 Dose: 2 mg Sodium Chloride (Normal Saline -) 250 mls @ 3,000 mls/hr IV PRN PRN PRN Reason: Hypotension during Dialysis Stop: 09/29/18 22:27 Insulin Aspart (Novolog Vial Sliding Scale -) 1 vial SQ [facility]; Protocol Last Admin: 09/29/18 10:51 Dose: Not Given Non-Formulary Medication (Mesalamine [Mesalamine]) 1.2 gm PO BID [facility] Polyethylene Glycol (Miralax (For Daily Use) -) 17 gm PO DAILY [facility] Last Admin: 09/29/18 10:50 Dose: Not Given - Objective Vital Signs: Vital Signs Temperature 97.9 F 09/29/18 14:57 Pulse Rate 67 09/29/18 14:57 Respiratory Rate 18 09/29/18 14:57 Blood Pressure 153/67 09/29/18 14:57 O2 Sat by Pulse Oximetry (%) 98 09/29/18 04:51 Constitutional: Yes: Calm Eyes: Yes: Conjunctiva Clear Neck: Yes: Supple Cardiovascular: Yes: S1, S2 Gastrointestinal: Yes: Normal Bowel Sounds, Soft Musculoskeletal: Yes: Other (amputated extremity) Edema: No Neurological: Yes: Oriented Psychiatric: Yes: Oriented Labs: CBC, BMP 09/29/18 07:15 09/29/18 07:15 INR, PTT INR 1.00 (0.83-1.09) 09/28/18 16:36 Problem List - Problems (1) ESRD (end stage renal disease) Code(s): N18.6 - END STAGE RENAL DISEASE (2) CHF (congestive heart failure) Code(s): I50.9 - HEART FAILURE, UNSPECIFIED (3) Hyperkalemia Code(s): E87.5 - HYPERKALEMIA Assessment/Plan Current Medications Generic Name Dose Route Start Last Admin Trade Name Freq PRN Reason Stop Dose Admin Amitriptyline HCl 75 mg 09/28/18 22:00 09/28/18 22:00 Elavil - PO Not Given HS MILADIS Ascorbic Acid 500 mg 09/29/18 10:00 09/29/18 10:48 Vitamin C - PO 500 mg DAILY [facility]ADIS Administration Aspirin 81 mg 09/29/18 10:00 09/29/18 10:47 Asa - PO 81 mg DAILY [facility] Administration Atorvastatin Calcium 10 mg 09/28/18 22:00 09/28/18 22:00 Lipitor - PO Not Given HS MILADIS Calcium Acetate 667 mg 09/28/18 22:00 09/29/18 14:54 Phoslo - PO 667 mg TID [facility]ADIS Administration Heparin Sodium (Porcine) 5,000 unit 09/29/18 06:00 09/29/18 14:54 Heparin - SQ 5,000 unit TID [facility]ADIS Administration Hydralazine HCl 50 mg 09/29/18 10:00 09/29/18 10:48 Apresoline - PO 50 mg DAILY [facility] Administration Hydromorphone HCl 2 mg 09/28/18 21:00 09/29/18 10:47 Dilaudid - PO 2 mg Q6H MILADIS Administration Sodium Chloride 250 mls @ 3,000 mls/hr 09/28/18 22:28 Normal Saline - IV 09/29/18 22:27 PRN PRN Hypotension during Dialysis Insulin Aspart 1 vial 09/28/18 22:00 09/29/18 10:51 Novolog Vial Sliding Scale - SQ Not Given ACHS MILADIS Protocol Non-Formulary Medication 1.2 gm 09/28/18 22:00 Mesalamine [Mesalamine] PO BID [facility] Polyethylene Glycol 17 gm 09/29/18 10:00 09/29/18 10:50 Miralax (For Daily Use) - PO Not Given DAILY [facility] Impression 1. ESRD 2. hyperkalemia 3. HTN 4. CAD 5. failed kidney transplant 6. tachycardia with junctional rythm 7. DM 8. HLD Plan - cardio input appreciated - pt tolerated HD last night - next HD on Monday - rate is improved - monitor bp closely - volume status is stable - renal diet
--- NOTE | 2018-09-29 21:36 | PN ---
Teaching Attending Note Name of Resident: Orlando Horton ATTENDING PHYSICIAN STATEMENT I saw and evaluated the patient. I reviewed the resident's note and discussed the case with the resident. I agree with the resident's findings and plan as documented. SUBJECTIVE: Patient is comfortable with no acute distress. OBJECTIVE: Vital Signs Temperature 97.8 F 09/29/18 20:48 Pulse Rate 71 09/29/18 20:48 Respiratory Rate 20 09/29/18 20:48 Blood Pressure 144/70 09/29/18 20:48 O2 Sat by Pulse Oximetry (%) 97 09/29/18 12:00 GENERAL: AAOx3 in NAD ,HEAD: NC/AT EYES: PERRL, extraocular movements intact, sclera anicteric, ENT:moist mucous membranes.NECK:supple. FROM LUNGS: CTA B/L , no wheezes, no crackles, no accessory muscle use. HEART: Regular rate and rhythm, S1, S2 , 2/6 systolic murmur RUSB ,No rub or gallop. ABDOMEN: Obese , Soft, ND,NT , normoactive bowel sounds, no guarding, no rebound , EXTREMITIES: , warm, well-perfused, right leg +2 edema. Left DKA , right ankle with wound covered with gauze NEUROLOGICAL: no focal deficit . Normal speech, PSYCH: Normal mood, normal affect. SKIN: Warm, dry, normal turgor, CBCD WBC 4.2 K/mm3 (4.0-10.0) 09/29/18 07:15 RBC 3.83 M/mm3 (3.60-5.2) 09/29/18 07:15 Hgb 10.0 GM/dL (10.7-15.3) L 09/29/18 07:15 Hct 32.7 % (32.4-45.2) 09/29/18 07:15 MCV 85.1 fl (80-96) 09/29/18 07:15 MCHC 30.7 g/dl (32.0-36.0) L 09/29/18 07:15 RDW 20.0 % (11.6-15.6) H 09/29/18 07:15 Plt Count 205 K/MM3 (134-434) 09/29/18 07:15 MPV 7.1 fl (7.5-11.1) L 09/29/18 07:15 CMP Sodium 138 mmol/L (136-145) 09/29/18 07:15 Potassium 4.3 mmol/L (3.5-5.1) 09/29/18 07:15 Chloride 101 mmol/L (98-107) 09/29/18 07:15 Carbon Dioxide 27 mmol/L (21-32) 09/29/18 07:15 Anion Gap 10 MMOL/L (8-16) 09/29/18 07:15 BUN 52 mg/dL (7-18) H 09/29/18 07:15 Creatinine 8.1 mg/dL (0.55-1.3) H* 09/29/18 07:15 Creat Clearance w eGFR 5.11 (>60) 09/29/18 07:15 Random Glucose 188 mg/dL (74-106) H 09/29/18 07:15 Calcium 8.1 mg/dL (8.5-10.1) L 09/29/18 07:15 Total Bilirubin 0.3 mg/dL (0.2-1) 09/29/18 07:15 AST 17 U/L (15-37) 09/29/18 07:15 ALT 20 U/L (13-61) 09/29/18 07:15 Alkaline Phosphatase 172 U/L (45-117) H 09/29/18 07:15 Total Protein 6.9 g/dl (6.4-8.2) 09/29/18 07:15 Albumin 2.8 g/dl (3.4-5.0) L 09/29/18 07:15 CARDIAC ENZYMES Troponin I 0.34 ng/ml (0.00-0.05) H 09/29/18 07:15 Current Medications Generic Name Dose Route Start Last Admin Trade Name Freq PRN Reason Stop Dose Admin Amitriptyline HCl 75 mg 09/28/18 22:00 09/28/18 22:00 Elavil - PO Not Given HS [facility] Ascorbic Acid 500 mg 09/29/18 10:00 09/29/18 10:48 Vitamin C - PO 500 mg DAILY [facility] Administration Aspirin 81 mg 09/29/18 10:00 09/29/18 10:47 Asa - PO 81 mg DAILY [facility] Administration Atorvastatin Calcium 10 mg 09/28/18 22:00 09/28/18 22:00 Lipitor - PO Not Given HS [facility] Calcium Acetate 667 mg 09/28/18 22:00 09/29/18 14:54 Phoslo - PO 667 mg TID [facility] Administration Heparin Sodium (Porcine) 5,000 unit 09/29/18 06:00 09/29/18 14:54 Heparin - SQ 5,000 unit TID [facility] Administration Hydralazine HCl 50 mg 09/29/18 10:00 09/29/18 10:48 Apresoline - PO 50 mg DAILY [facility] Administration Hydromorphone HCl 2 mg 09/28/18 21:00 09/29/18 17:18 Dilaudid - PO 2 mg Q6H [facility] Administration Sodium Chloride 250 mls @ 3,000 mls/hr 09/28/18 22:28 Normal Saline - IV 09/29/18 22:27 PRN PRN Hypotension during Dialysis Insulin Aspart 1 vial 09/28/18 22:00 09/29/18 17:19 Novolog Vial Sliding Scale - SQ 4 units ACHS [facility] Administration Protocol Non-Formulary Medication 1.2 gm 09/28/18 22:00 Mesalamine [Mesalamine] PO BID [facility] Polyethylene Glycol 17 gm 09/29/18 10:00 09/29/18 10:50 Miralax (For Daily Use) - PO Not Given DAILY [facility] Home Medications Medication Instructions Recorded Amitriptyline HCl [Elavil -] 75 mg PO HS 09/28/18 Ascorbic Acid [Vitamin C -] 500 mg PO DAILY 09/28/18 Aspirin [ASA -] 81 mg PO DAILY 09/28/18 Calcium Acetate 667 mg PO TID 09/28/18 HYDROmorphone [Dilaudid -] 2 mg PO Q6H 09/28/18 Hydralazine HCl 50 mg PO DAILY 09/28/18 Insulin Glargine,Hum.rec.anlog 5 unit SQ DAILY 09/28/18 [Basaglar Kwikpen U-100] Lisinopril [Prinivil] 10 mg PO DAILY 09/28/18 Lisinopril [Prinivil] 10 mg PO HS 09/28/18 Magnesium Hydrox 2400MG/30Ml [Milk 5 ml PO ASDIR 09/28/18 of Magnesia -] Mesalamine 1.2 gm PO BID 09/28/18 Polyethylene Glycol 3350 [Miralax 17 gm PO DAILY 09/28/18 (For Daily Use) -] Simvastatin [Zocor -] 20 mg PO HS 09/28/18 Laboratory Tests 09/28/18 09/28/18 09/28/18 16:36 16:36 19:26 Creatinine 11.9 H* Troponin I 0.45 H 0.40 H 09/29/18 09/29/18 09/29/18 03:00 07:15 07:15 Creatinine 8.1 H* Troponin I 0.42 H 0.34 H ASSESSMENT AND PLAN: 57 year old woman with history of ESRD, 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 #Elevated troponin,most likely demand ischemia as per store coordinator and not an ACS. Cardio consult appreciated. # Junctional Rhythm no BB or AvN blockade; recommend out patient event monitoring to determine how often she has junctional tachycardia # ESRD , nephro for HD , nephro # Hyperkalemia, resolved after HD #HTN continue home meds. #HLD :continue Statin therapy. #DM type 2 : sliding scal ewith coverage #DVT prophylaxis: heparin 5K units TID
[2018-09-29] MEDS ORDERED: PT OWN MED DRAWER 7, Y5N ONE (22:20)
[2018-09-29] MEDS: ATORVASTATIN CA 10 MG TABLET (FP) PO SCH (22:27)
[2018-09-29] MEDS: AMITRIPTYLINE HCL 75 MG TABLET PO SCH (22:27)
[2018-09-30] MEDS: HYDROmorphone HCL 2 MG TABLET PO SCH ×4 (04:30→21:05)
[2018-09-30] MEDS: HEPARIN NA (PORCINE) 5,000 UNITS/ML 1ML VIAL SQ SCH ×3 (06:28→21:06)
[2018-09-30] MEDS: CALCIUM ACETATE 667 MG CAPSULE (FP) PO SCH ×3 (06:28→21:06)
[2018-09-30] MEDS: INSULIN SLIDING SCALE (NOVOLOG) 1 VIAL SQ SCH ×4 (06:28→21:12)
[2018-09-30 08:20] LABS: BASO % 1.1 % (0-2.0); EOS % 4.3 % (0-4.5); HEMATOCRIT 32.5 % (32.4-45.2); LYMPH % 38.5 % (8-40); MCH 26.2 pg (25.7-33.7); MCHC 30.7 g/dl (32.0-36.0); MEAN CELL VOLUME 85.3 fl (80-96); MEAN PLT VOLUME 7.7 fl (7.5-11.1); NEUT % 48.1 % (42.8-82.8); PLATELET COUNT 218 K/MM3 (134-434); RBC 3.81 M/mm3 (3.60-5.2); RDW 19.8 % (11.6-15.6); WHITE BLOOD COUNT 4.8 K/mm3 (4.0-10.0)
[2018-09-30 09:16] LABS: ALBUMIN 2.8 g/dl (3.4-5.0); ALK PHOS 153 U/L (45-117); ANION GAP 12 MMOL/L (8-16); BILIRUBIN,TOTAL 0.3 mg/dL (0.2-1); BLOOD UREA NITROGEN 76 mg/dL (7-18); CALCIUM 8.8 mg/dL (8.5-10.1); CHLORIDE 99 mmol/L (98-107); CO2 25 mmol/L (21-32); GLUCOSE,RANDOM 126 mg/dL (74-106); MAGNESIUM 2.6 mg/dL (1.8-2.4); POTASSIUM 5.7 mmol/L (3.5-5.1); SGOT/AST 16 U/L (15-37); SGPT/ALT 17 U/L (13-61); SODIUM 136 mmol/L (136-145); TOT PROT 6.8 g/dl (6.4-8.2)
[2018-09-30 09:17] LABS: PHOSPHOROUS 8.3 mg/dL (2.5-4.9)
[2018-09-30 09:19] LABS: CREATININE 10.3 mg/dL (0.55-1.3)
[2018-09-30] MEDS ORDERED: PT OWN MED DRAWER 7, Y5N ONE ×2 (09:28→21:08)
[2018-09-30] MEDS: hydrALAZINE HCL 50 MG TABLET (FP) PO SCH ×2 (09:30→21:06)
[2018-09-30] MEDS: ASPIRIN 81 MG CHEWABLE TABLETS PO SCH (09:30)
[2018-09-30] MEDS: ASCORBIC ACID 500 MG TABLET (FP) PO SCH (09:31)
[2018-09-30] MEDS: POLYETHYLENE GLYCOL 3350 119 GM BTL PO SCH (09:31)
--- NOTE | 2018-09-30 11:40 | PN ---
Teaching Attending Note Name of Resident: Ashlyn Sandoval ATTENDING PHYSICIAN STATEMENT I saw and evaluated the patient. I reviewed the resident's note and discussed the case with the resident. I agree with the resident's findings and plan as documented. SUBJECTIVE: Patient is comfortable with no acute distress. OBJECTIVE: Vital Signs Temperature 98.0 F 09/30/18 06:00 Pulse Rate 69 09/30/18 06:00 Respiratory Rate 18 09/30/18 09:00 Blood Pressure 142/77 09/30/18 06:00 O2 Sat by Pulse Oximetry (%) 95 09/30/18 09:00 General: EYES: PERRL, extraocular movements intact, sclera anicteric, ENT:moist mucous membranes.NECK:supple. FROM LUNGS: CTA B/L , no wheezes, no crackles, no accessory muscle use. HEART: Regular rate and rhythm, S1, S2 , 2/6 systolic murmur RUSB ,No rub or gallop. ABDOMEN: Obese , Soft, ND,NT , BS positive , no guarding, no rebound, EXTREMITIES: Left BkA , right foot podiatry shoe NEUROLOGICAL: no focal deficit . Normal speech, PSYCH: Normal mood, normal affect. SKIN: Warm, dry, normal turgor. CBCD WBC 4.8 K/mm3 (4.0-10.0) 09/30/18 06:50 RBC 3.81 M/mm3 (3.60-5.2) 09/30/18 06:50 Hgb 10.0 GM/dL (10.7-15.3) L 09/30/18 06:50 Hct 32.5 % (32.4-45.2) 09/30/18 06:50 MCV 85.3 fl (80-96) 09/30/18 06:50 MCHC 30.7 g/dl (32.0-36.0) L 09/30/18 06:50 RDW 19.8 % (11.6-15.6) H 09/30/18 06:50 Plt Count 218 K/MM3 (134-434) 09/30/18 06:50 MPV 7.7 fl (7.5-11.1) 09/30/18 06:50 CMP Sodium 136 mmol/L (136-145) 09/30/18 06:00 Potassium 5.7 mmol/L (3.5-5.1) H 09/30/18 06:00 Chloride 99 mmol/L (98-107) 09/30/18 06:00 Carbon Dioxide 25 mmol/L (21-32) 09/30/18 06:00 Anion Gap 12 MMOL/L (8-16) 09/30/18 06:00 BUN 76 mg/dL (7-18) H 09/30/18 06:00 Creatinine 10.3 mg/dL (0.55-1.3) H* 09/30/18 06:00 Creat Clearance w eGFR 3.87 (>60) 09/30/18 06:00 Random Glucose 126 mg/dL (74-106) H 09/30/18 06:00 Calcium 8.8 mg/dL (8.5-10.1) 09/30/18 06:00 Total Bilirubin 0.3 mg/dL (0.2-1) 09/30/18 06:00 AST 16 U/L (15-37) 09/30/18 06:00 ALT 17 U/L (13-61) 09/30/18 06:00 Alkaline Phosphatase 153 U/L (45-117) H 09/30/18 06:00 Total Protein 6.8 g/dl (6.4-8.2) 09/30/18 06:00 Albumin 2.8 g/dl (3.4-5.0) L 09/30/18 06:00 CARDIAC ENZYMES Troponin I 0.34 ng/ml (0.00-0.05) H 09/29/18 07:15 Current Medications Generic Name Dose Route Start Last Admin Trade Name [place] PRN Reason Stop Dose Admin Amitriptyline HCl 75 mg 09/28/18 22:00 09/29/18 22:27 Elavil - PO 75 mg HS [facility] Administration Ascorbic Acid 500 mg 09/29/18 10:00 09/30/18 09:31 Vitamin C - PO 500 mg DAILY [facility] Administration Aspirin 81 mg 09/29/18 10:00 09/30/18 09:30 Asa - PO 81 mg DAILY [facility] Administration Atorvastatin Calcium 10 mg 09/28/18 22:00 09/29/18 22:27 Lipitor - PO 10 mg HS [facility] Administration Calcium Acetate 667 mg 09/28/18 22:00 09/30/18 06:28 Phoslo - PO 667 mg TID [facility] Administration Heparin Sodium (Porcine) 5,000 unit 09/29/18 06:00 09/30/18 06:28 Heparin - SQ 5,000 unit TID [facility] Administration Hydralazine HCl 50 mg 09/29/18 10:00 09/30/18 09:30 Apresoline - PO 50 mg DAILY [facility] Administration Hydromorphone HCl 2 mg 09/28/18 21:00 09/30/18 09:30 Dilaudid - PO 2 mg Q6H [facility] Administration Insulin Aspart 1 vial 09/28/18 22:00 09/30/18 11:30 Novolog Vial Sliding Scale - SQ 2 units ACHS [facility] Administration Protocol Non-Formulary Medication 1.2 gm 09/28/18 22:00 Mesalamine [Mesalamine] PO BID [facility] Polyethylene Glycol 17 gm 09/29/18 10:00 09/30/18 09:31 Miralax (For Daily Use) - PO Not Given DAILY [facility] Home Medications Medication Instructions Recorded Amitriptyline HCl [Elavil -] 75 mg PO HS 09/28/18 Ascorbic Acid [Vitamin C -] 500 mg PO DAILY 09/28/18 Aspirin [ASA -] 81 mg PO DAILY 09/28/18 Calcium Acetate 667 mg PO TID 09/28/18 HYDROmorphone [Dilaudid -] 2 mg PO Q6H 09/28/18 Hydralazine HCl 50 mg PO DAILY 09/28/18 Insulin Glargine,Hum.rec.anlog 5 unit SQ DAILY 09/28/18 [Basaglar Kwikpen U-100] Lisinopril [Prinivil] 10 mg PO DAILY 09/28/18 Lisinopril [Prinivil] 10 mg PO HS 09/28/18 Magnesium Hydrox 2400MG/30Ml [Milk 5 ml PO ASDIR 09/28/18 of Magnesia -] Mesalamine 1.2 gm PO BID 09/28/18 Polyethylene Glycol 3350 [Miralax 17 gm PO DAILY 09/28/18 (For Daily Use) -] Simvastatin [Zocor -] 20 mg PO HS 09/28/18 ASSESSMENT AND PLAN: 57 year old woman with history of ESRD, 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 #Elevated troponin,most likely demand ischemia as per edge stripper and not an ACS. Cardio consult appreciated. # Junctional Rhythm no BB or AvN blockade; recommend out patient event monitoring to determine how often she has junctional tachycardia Presently in NSR with first degree AVB # ESRD , nephro for HD , nephro # Hyperkalemia, resolved after HD #HTN continue home meds. #HLD :continue Statin therapy. #DM type 2 : sliding scal ewith coverage #DVT prophylaxis: heparin 5K units TID will discharge patient home in am , with follow up with cardiologsit for an event monitor Dialysis in am
--- NOTE | 2018-09-30 14:42 | PN ---
Physical Exam: SUBJECTIVE: Patient seen and examined this morning at bedside. Patient mentions that 10 days ago, she required O2 at hemodialysis bc of SOB. This past monday, she did not start HD as she was tachycardic and she was sent to the ED. Currently denies any fevers, chills, chest pain, SOB, nausea, vomiting, diarrhea. OBJECTIVE: Vital Signs Period Temp Pulse Resp BP Sys/Pillai Pulse Ox Last 24 Hr 97.7 F-98.2 F 64-71 18-20 141-153/60-77 95-97 GENERAL: A&Ox3, NAD HEAD: NCAT EYES: PERRL, EOMI ENT: Oropharynx clear without exudates, moist mucous membranes. NECK: No JVD LUNGS: CTAB, no wheezes HEART: Regular rate and rhythm, S1, S2 without murmur ABDOMEN: Obese, Soft, nontender, nondistended, + bowel sounds, no guarding EXTREMITIES: Left BKA wearing prosthetic leg. RLE wound on the posterior heel covered in gauze. Wound is nontender, without active drainage, no surrounding erythema NEUROLOGICAL: Cranial nerves II through XII grossly intact. Normal speech. SKIN: Warm, dry Laboratory Results - last 24 hr 09/30/18 09/30/18 09/30/18 06:00 06:27 06:50 WBC 4.8 RBC 3.81 Hgb 10.0 L Hct 32.5 MCV 85.3 MCH 26.2 MCHC 30.7 L RDW 19.8 H Plt Count 218 MPV 7.7 Absolute Neuts (auto) 2.3 Neutrophils % 48.1 Lymphocytes % 38.5 Monocytes % 8.0 Eosinophils % 4.3 Basophils % 1.1 Nucleated RBC % 0 Sodium 136 Potassium 5.7 H Chloride 99 Carbon Dioxide 25 Anion Gap 12 BUN 76 H Creatinine 10.3 H* Creat Clearance w eGFR 3.87 POC Glucometer 120 Random Glucose 126 H Calcium 8.8 Phosphorus 8.3 H Magnesium 2.6 H Total Bilirubin 0.3 AST 16 ALT 17 Alkaline Phosphatase 153 H Total Protein 6.8 Albumin 2.8 L Hep C Ab Diagnostic Active Medications Amitriptyline HCl (Elavil -) 75 mg PO HS [facility] Last Admin: 09/29/18 22:27 Dose: 75 mg Ascorbic Acid (Vitamin C -) 500 mg PO DAILY [facility] Last Admin: 09/30/18 09:31 Dose: 500 mg Aspirin (Asa -) 81 mg PO DAILY [facility] Last Admin: 09/30/18 09:30 Dose: 81 mg Atorvastatin Calcium (Lipitor -) 10 mg PO HS [facility] Last Admin: 09/29/18 22:27 Dose: 10 mg Calcium Acetate (Phoslo -) 667 mg PO TID [facility] Last Admin: 09/30/18 13:20 Dose: 667 mg Heparin Sodium (Porcine) (Heparin -) 5,000 unit SQ TID [facility] Last Admin: 09/30/18 13:20 Dose: 5,000 unit Hydralazine HCl (Apresoline -) 50 mg PO DAILY [facility] Last Admin: 09/30/18 09:30 Dose: 50 mg Hydromorphone HCl (Dilaudid -) 2 mg PO Q6H [facility] Last Admin: 09/30/18 09:30 Dose: 2 mg Insulin Aspart (Novolog Vial Sliding Scale -) 1 vial SQ [facility]; Protocol Last Admin: 09/30/18 11:30 Dose: 2 units Non-Formulary Medication (Mesalamine [Mesalamine]) 1.2 gm PO BID [facility] Polyethylene Glycol (Miralax (For Daily Use) -) 17 gm PO DAILY [facility] Last Admin: 09/30/18 09:31 Dose: Not Given IMAGING: -CXR: Large heart. Congestive changes. ASSESSMENT/PLAN: 57 y/o F with PMHx of ESRD (HD MWF), Failed kidney transplant, NIDDM, HTN, Left BKA (2003) and Right heel ulcer was brought from Dialysis for tachycardia and was found to have elevated Trops. #Elevated troponin -Likely demand ischemia, will r/o ACS -Trops 0.45-->0.40-->0.42 -Tele monitoring -Cardiology (Dr. Howe) consulted, appreciate rec's -Continue Statin, ASA #Junctional Rhythm -Cardiology (Dr. Howe) consulted, appreciate rec's -Will need outpatient event monitoring -Avoid beta blockers given slow sinus HR and 1st AVB #ESRD on HD (MWF) -Received Emergent dialysis on Monday night; Will resume usual HD schdule -Nephrology (Dr. Box) consulted, appreciate rec's #Hyperkalemia -Initially resolved after HD, 5.7 again this AM -Lisinopril held -Given Insulin 10 Units, Amp D50, 1gm calcium gluconate, 30 Kayexalate, 50 mEq Bicarb -Continue to monitor #HTN -Hydralazine dose increased to 50mg BID -Lisinopril held given Hyperkalemia #HLD -Statin #DMII -BGM, ISS ACHS #PPx -DVT: Heparin Dispo: Tele, Likely d/c tmrw Visit type - Emergency Visit Emergency Visit: Yes ED Registration Date: 09/28/18 Care time: The patient presented to the Emergency Department on the above date and was hospitalized for further evaluation of their emergent condition. - New Patient This patient is new to me today: Yes Date on this admission: 09/30/18 - Critical Care Critical Care patient: No - Discharge Referral Referred to [facility] No
--- NOTE | 2018-09-30 14:59 | PN ---
Progress Note, Physician Chief Complaint: Presently comfortable History of Present Illness: This is a 57 year old female with ESRD and is s/p renal transplant 2002 which failed in 2014, now on HD, PMH of M, HTN, HL, L BKA, R heel wound. She was sent from a dialysis center with junctional tachycardia. Dialysis last night was hemodynamically tolerated. K+ was 5.4. Trops 0.4, 0.42, and 0.34 09/30/18 Hemodynamically stable . - Current Medication List Current Medications: Active Medications Amitriptyline HCl (Elavil -) 75 mg PO HS [facility] Last Admin: 09/29/18 22:27 Dose: 75 mg Ascorbic Acid (Vitamin C -) 500 mg PO DAILY [facility] Last Admin: 09/30/18 09:31 Dose: 500 mg Aspirin (Asa -) 81 mg PO DAILY [facility] Last Admin: 09/30/18 09:30 Dose: 81 mg Atorvastatin Calcium (Lipitor -) 10 mg PO [facility] Last Admin: 09/29/18 22:27 Dose: 10 mg Calcium Acetate (Phoslo -) 667 mg PO TID [facility] Last Admin: 09/30/18 13:20 Dose: 667 mg Heparin Sodium (Porcine) (Heparin -) 5,000 unit SQ TID [facility] Last Admin: 09/30/18 13:20 Dose: 5,000 unit Hydralazine HCl (Apresoline -) 50 mg PO DAILY [facility] Last Admin: 09/30/18 09:30 Dose: 50 mg Hydromorphone HCl (Dilaudid -) 2 mg PO Q6H [facility] Last Admin: 09/30/18 14:26 Dose: 2 mg Insulin Aspart (Novolog Vial Sliding Scale -) 1 vial SQ [facility]; Protocol Last Admin: 09/30/18 11:30 Dose: 2 units Non-Formulary Medication (Mesalamine [Mesalamine]) 1.2 gm PO BID [facility] Polyethylene Glycol (Miralax (For Daily Use) -) 17 gm PO DAILY [facility] Last Admin: 09/30/18 09:31 Dose: Not Given - Objective Vital Signs: Vital Signs Temperature 97.8 F 09/30/18 14:00 Pulse Rate 66 09/30/18 14:00 Respiratory Rate 18 09/30/18 14:00 Blood Pressure 149/66 09/30/18 14:00 O2 Sat by Pulse Oximetry (%) 95 09/30/18 09:00 Constitutional: Yes: Well Nourished, No Distress HENT: Yes: WNL Neck: Yes: WNL Cardiovascular: Yes: Regular Rate and Rhythm (NL S1S2, no MRHG) Respiratory: Yes: CTA Bilaterally Gastrointestinal: Yes: Normal Bowel Sounds Extremities: Yes: Other (Left BKA) Edema: No Labs: CBC, BMP 09/30/18 06:50 09/30/18 06:00 INR, PTT INR 1.00 (0.83-1.09) 09/28/18 16:36 Assessment/Plan 57 year old female with ESRD and is s/p renal transplant 2002 which failed in 2014, now on HD, PMH of M, HTN, HL, L BKA, R heel wound. She was sent from a dialysis center with junctional tachycardia. Dialysis last night was hemodynamically tolerated. K+ was 5.4. Trops 0.4, 0.42, and 0.34 Junctional Tachycardia May have been secondary to electrolyte fluxes Presently in NSR with first degree AVB Recommend out patient event monitoring to determine how often she has junctional tachycardia Would not start beta blockers because of the relatively slow sinus HR and 1st AVB. Elevated trops Most likely demand ischemia and not an acute coronary syndrome Continue secondary prevention with statin and ASA
[2018-09-30] MEDS ORDERED: SODIUM CHLORIDE 250 ML IV PRN (15:43)
--- NOTE | 2018-09-30 15:43 | PN ---
Progress Note, Physician History of Present Illness: Pt seen and examined at bedside. She is awake and alert. She denies shortness of breath or palpitations. - Current Medication List Current Medications: Active Medications Amitriptyline HCl (Elavil -) 75 mg PO HS [facility] Last Admin: 09/29/18 22:27 Dose: 75 mg Ascorbic Acid (Vitamin C -) 500 mg PO DAILY [facility] Last Admin: 09/30/18 09:31 Dose: 500 mg Aspirin (Asa -) 81 mg PO DAILY [facility] Last Admin: 09/30/18 09:30 Dose: 81 mg Atorvastatin Calcium (Lipitor -) 10 mg PO HS [facility] Last Admin: 09/29/18 22:27 Dose: 10 mg Calcium Acetate (Phoslo -) 667 mg PO TID [facility] Last Admin: 09/30/18 13:20 Dose: 667 mg Heparin Sodium (Porcine) (Heparin -) 5,000 unit SQ TID [facility] Last Admin: 09/30/18 13:20 Dose: 5,000 unit Hydralazine HCl (Apresoline -) 50 mg PO DAILY [facility] Last Admin: 09/30/18 09:30 Dose: 50 mg Hydromorphone HCl (Dilaudid -) 2 mg PO Q6H [facility] Last Admin: 09/30/18 14:26 Dose: 2 mg Insulin Aspart (Novolog Vial Sliding Scale -) 1 vial SQ [facility]; Protocol Last Admin: 09/30/18 11:30 Dose: 2 units Non-Formulary Medication (Mesalamine [Mesalamine]) 1.2 gm PO BID [facility] Polyethylene Glycol (Miralax (For Daily Use) -) 17 gm PO DAILY [facility] Last Admin: 09/30/18 09:31 Dose: Not Given - Objective Vital Signs: Vital Signs Temperature 97.8 F 09/30/18 14:00 Pulse Rate 66 09/30/18 14:00 Respiratory Rate 18 09/30/18 14:00 Blood Pressure 149/66 09/30/18 14:00 O2 Sat by Pulse Oximetry (%) 95 09/30/18 09:00 Constitutional: Yes: Calm Eyes: Yes: Conjunctiva Clear HENT: Yes: Atraumatic Neck: Yes: Supple Cardiovascular: Yes: S1, S2 Respiratory: Yes: CTA Bilaterally Gastrointestinal: Yes: Soft, Abdomen, Obese Musculoskeletal: Yes: Other Edema: No Neurological: Yes: Oriented Psychiatric: Yes: Oriented Labs: CBC, BMP 09/30/18 06:50 09/30/18 06:00 INR, PTT INR 1.00 (0.83-1.09) 09/28/18 16:36 Problem List - Problems (1) ESRD (end stage renal disease) Code(s): N18.6 - END STAGE RENAL DISEASE (2) CHF (congestive heart failure) Code(s): I50.9 - HEART FAILURE, UNSPECIFIED (3) Hyperkalemia Code(s): E87.5 - HYPERKALEMIA Assessment/Plan Current Medications Generic Name Dose Route Start Last Admin Trade Name Freq PRN Reason Stop Dose Admin Amitriptyline HCl 75 mg 09/28/18 22:00 09/29/18 22:27 Elavil - PO 75 mg HS [facility] Administration Ascorbic Acid 500 mg 09/29/18 10:00 09/30/18 09:31 Vitamin C - PO 500 mg DAILY [facility] Administration Aspirin 81 mg 09/29/18 10:00 09/30/18 09:30 Asa - PO 81 mg DAILY [facility] Administration Atorvastatin Calcium 10 mg 09/28/18 22:00 09/29/18 22:27 Lipitor - PO 10 mg HS [facility] Administration Calcium Acetate 667 mg 09/28/18 22:00 09/30/18 13:20 Phoslo - PO 667 mg TID [facility] Administration Heparin Sodium (Porcine) 5,000 unit 09/29/18 06:00 09/30/18 13:20 Heparin - SQ 5,000 unit TID [facility] Administration Hydralazine HCl 50 mg 09/29/18 10:00 09/30/18 09:30 Apresoline - PO 50 mg DAILY [facility] Administration Hydromorphone HCl 2 mg 09/28/18 21:00 09/30/18 14:26 Dilaudid - PO 2 mg Q6H [facility] Administration Insulin Aspart 1 vial 09/28/18 22:00 09/30/18 11:30 Novolog Vial Sliding Scale - SQ 2 units ACHS [facility] Administration Protocol Non-Formulary Medication 1.2 gm 09/28/18 22:00 Mesalamine [Mesalamine] PO BID [facility] Polyethylene Glycol 17 gm 09/29/18 10:00 09/30/18 09:31 Miralax (For Daily Use) - PO Not Given DAILY [facility] Impression 1. ESRD 2. hyperkalemia 3. HTN 4. CAD 5. failed kidney transplant 6. tachycardia with junctional rythm 7. DM 8. HLD Plan - will treat potassium medically, insulin d50 calcium gluc kayexylate bicarb - discussed with medical team - HD tomorrow in am - will increase HD time to 4 hours - cardio input appreciated - increase hydralazine to 50 q 12 hrs - volume status is stable - renal diet
[2018-09-30] MEDS ORDERED: DEXTROSE 50%-WATER 25 GM/50 ML DISP.SYRIN IVPUSH ONE (15:46)
[2018-09-30] MEDS ORDERED: SODIUM BICARBONATE 8.4% 50 MEQ/50 ML VIAL IVPUSH ONE (15:48)
[2018-09-30] MEDS ORDERED: CALCIUM GLUCONATE 10% - 1,000 MG/10 ML VIAL IVPB ONE (16:00)
[2018-09-30] MEDS ORDERED: INSULIN (NOVOLOG) ASPART 100 UNITS/ML 10ML VIAL SQ ONE (16:00)
[2018-09-30] MEDS ORDERED: SODIUM POLYSTYRENE SULFONATE 15 GM/60 ML BOTTLE PO ONE (16:00)
--- NOTE | 2018-09-30 19:05 | EKG ---
Test Reason : Blood Pressure : / mmHG Vent. Rate : 118 BPM Atrial Rate : 117 BPM P-R Int : 000 ms QRS Dur : 100 ms QT Int : 362 ms P-R-T Axes : 000 -55 130 degrees QTc Int : 507 ms ACCELERATED JUNCTIONAL RHYTHM LEFT AXIS DEVIATION POOR R WAVE PROGRESSION ABNORMAL ECG WHEN COMPARED WITH ECG OF 28-SEP-2018 19:22, JUNCTIONAL RHYTHM HAS REPLACED SINUS RHYTHM VENT. RATE HAS INCREASED BY 41 BPM Confirmed by SILVESTRE MOSHER, MARILU ([id number]) on 09/30/2018 7:05:25 PM Referred By: Chun DASILVA Confirmed By:MARILU RIVERS MD
--- NOTE | 2018-09-30 19:13 | EKG ---
Test Reason : Blood Pressure : / mmHG Vent. Rate : 077 BPM Atrial Rate : 077 BPM P-R Int : 246 ms QRS Dur : 098 ms QT Int : 410 ms P-R-T Axes : 054 -42 099 degrees QTc Int : 463 ms SINUS RHYTHM WITH 1ST DEGREE A-V BLOCK LEFT AXIS DEVIATION MINIMAL VOLTAGE CRITERIA FOR LVH, MAY BE NORMAL VARIANT POOR R WAVE PROGRESSION ABNORMAL ECG WHEN COMPARED WITH ECG OF 28-SEP-2018 16:02, SINUS RHYTHM HAS REPLACED JUNCTIONAL RHYTHM VENT. RATE HAS DECREASED BY 42 BPM T WAVE VARIATION Confirmed by MARILU RIVERS MD ([id number]) on 09/30/2018 7:12:57 PM Referred By: Confirmed By:MARILU RIVERS MD
--- NOTE | 2018-09-30 19:16 | EKG ---
Test Reason : Blood Pressure : / mmHG Vent. Rate : 119 BPM Atrial Rate : 061 BPM P-R Int : 000 ms QRS Dur : 096 ms QT Int : 344 ms P-R-T Axes : 000 -49 112 degrees QTc Int : 483 ms ACCELERATED JUNCTIONAL RHYTHM LEFT AXIS DEVIATION ABNORMAL ECG NO PREVIOUS ECGS AVAILABLE Confirmed by MARILU RIVERS MD ([id number]) on 09/30/2018 7:16:37 PM Referred By: Confirmed By:MARILU RIVERS MD
[2018-09-30 19:59] LABS: ANION GAP 15 MMOL/L (8-16); BLOOD UREA NITROGEN 91 mg/dL (7-18); CALCIUM 8.2 mg/dL (8.5-10.1); CHLORIDE 98 mmol/L (98-107); CO2 25 mmol/L (21-32); GLUCOSE,RANDOM 128 mg/dL (74-106); MAGNESIUM 2.3 mg/dL (1.8-2.4); PHOSPHOROUS 8.7 mg/dL (2.5-4.9); SODIUM 138 mmol/L (136-145)
[2018-09-30] MEDS: ATORVASTATIN CA 10 MG TABLET (FP) PO SCH (21:06)
[2018-09-30] MEDS: AMITRIPTYLINE HCL 75 MG TABLET PO SCH (21:08)
[2018-10-01] MEDS ORDERED: PROMETHAZINE HCL 25 MG TABLET PO ONE (01:00)
[2018-10-01] MEDS: HYDROmorphone HCL 2 MG TABLET PO SCH ×2 (02:18→11:29)
[2018-10-01] MEDS: CALCIUM ACETATE 667 MG CAPSULE (FP) PO SCH (06:26)
[2018-10-01] MEDS: HEPARIN NA (PORCINE) 5,000 UNITS/ML 1ML VIAL SQ SCH (06:26)
[2018-10-01] MEDS: INSULIN SLIDING SCALE (NOVOLOG) 1 VIAL SQ SCH ×2 (06:27→11:31)
[2018-10-01 08:45] LABS: HEMATOCRIT 30.2 % (32.4-45.2); HEMOGLOBIN 9.3 GM/dL (10.7-15.3); MCH 26.2 pg (25.7-33.7); MEAN CELL VOLUME 84.6 fl (80-96); MEAN PLT VOLUME 8.1 fl (7.5-11.1); PLATELET COUNT 209 K/MM3 (134-434); RBC 3.56 M/mm3 (3.60-5.2); WHITE BLOOD COUNT 5.6 K/mm3 (4.0-10.0)
[2018-10-01 09:06] VITALS: TEMP 98
[2018-10-01 09:19] LABS: ANION GAP 15 MMOL/L (8-16); CALCIUM 8.1 mg/dL (8.5-10.1); CHLORIDE 97 mmol/L (98-107); CO2 24 mmol/L (21-32); GLUCOSE,RANDOM 141 mg/dL (74-106); POTASSIUM 5.6 mmol/L (3.5-5.1); SODIUM 135 mmol/L (136-145)
[2018-10-01 10:00] LABS: BLOOD UREA NITROGEN 106 mg/dL (7-18); CREATININE 11.7 mg/dL (0.55-1.3)
--- NOTE | 2018-10-01 10:45 | EKG ---
Test Reason : Blood Pressure : / mmHG Vent. Rate : 071 BPM Atrial Rate : 071 BPM P-R Int : 202 ms QRS Dur : 096 ms QT Int : 438 ms P-R-T Axes : 087 -48 102 degrees QTc Int : 475 ms NORMAL SINUS RHYTHM LEFT AXIS DEVIATION NONSPECIFIC ST AND T WAVE ABNORMALITY PROLONGED QT ABNORMAL ECG WHEN COMPARED WITH ECG OF 29-SEP-2018 10:03, SINUS RHYTHM HAS REPLACED JUNCTIONAL RHYTHM VENT. RATE HAS DECREASED BY 47 BPM Confirmed by MARILU RIVERS MD ([id number]) on 10/01/2018 10:45:24 AM Referred By: Confirmed By:MARILU RIVERS MD
--- NOTE | 2018-10-01 11:17 | PN ---
Progress Note, Physician History of Present Illness: Pt seen and examined at bedside. She is awake and alert. SHe is tolerating HD. She denies shortness of breath or palpitations. - Current Medication List Current Medications: Active Medications Amitriptyline HCl (Elavil -) 75 mg PO HS [facility] Last Admin: 09/30/18 21:08 Dose: 75 mg Ascorbic Acid (Vitamin C -) 500 mg PO DAILY [facility] Last Admin: 09/30/18 09:31 Dose: 500 mg Aspirin (Asa -) 81 mg PO DAILY [facility] Last Admin: 09/30/18 09:30 Dose: 81 mg Atorvastatin Calcium (Lipitor -) 10 mg PO HS [facility] Last Admin: 09/30/18 21:06 Dose: 10 mg Calcium Acetate (Phoslo -) 667 mg PO TID [facility] Last Admin: 10/01/18 06:26 Dose: 667 mg Heparin Sodium (Porcine) (Heparin -) 5,000 unit SQ TID [facility] Last Admin: 10/01/18 06:26 Dose: 5,000 unit Hydralazine HCl (Apresoline -) 50 mg PO BID [facility] Last Admin: 09/30/18 21:06 Dose: 50 mg Hydromorphone HCl (Dilaudid -) 2 mg PO Q6H [facility] Last Admin: 10/01/18 02:18 Dose: 2 mg Sodium Chloride (Normal Saline -) 250 mls @ 3,000 mls/hr IV PRN PRN PRN Reason: Hypotension during Dialysis Stop: 10/01/18 15:43 Insulin Aspart (Novolog Vial Sliding Scale -) 1 vial SQ [facility]; Protocol Last Admin: 10/01/18 06:27 Dose: 2 units Non-Formulary Medication (Mesalamine [Mesalamine]) 1.2 gm PO BID [facility] Polyethylene Glycol (Miralax (For Daily Use) -) 17 gm PO DAILY [facility] Last Admin: 09/30/18 09:31 Dose: Not Given - Objective Vital Signs: Vital Signs Temperature 98 F 10/01/18 08:30 Pulse Rate 61 10/01/18 10:30 Respiratory Rate 18 10/01/18 10:30 Blood Pressure 140/70 10/01/18 10:30 O2 Sat by Pulse Oximetry (%) 96 10/01/18 05:59 Constitutional: Yes: Calm Eyes: Yes: Conjunctiva Clear HENT: Yes: Atraumatic Cardiovascular: Yes: S1, S2 Respiratory: Yes: CTA Bilaterally Gastrointestinal: Yes: Soft Genitourinary: Yes: WNL Musculoskeletal: Yes: Other (leg amputation) Edema: No Neurological: Yes: Oriented Psychiatric: Yes: Oriented Labs: CBC, BMP 10/01/18 07:00 10/01/18 07:00 INR, PTT INR 1.00 (0.83-1.09) 09/28/18 16:36 Problem List - Problems (1) ESRD (end stage renal disease) Code(s): N18.6 - END STAGE RENAL DISEASE (2) CHF (congestive heart failure) Code(s): I50.9 - HEART FAILURE, UNSPECIFIED (3) Hyperkalemia Code(s): E87.5 - HYPERKALEMIA Assessment/Plan Current Medications Generic Name Dose Route Start Last Admin Trade Name Freq PRN Reason Stop Dose Admin Amitriptyline HCl 75 mg 09/28/18 22:00 09/30/18 21:08 Elavil - PO 75 mg HS [facility] Administration Ascorbic Acid 500 mg 09/29/18 10:00 09/30/18 09:31 Vitamin C - PO 500 mg DAILY [facility] Administration Aspirin 81 mg 09/29/18 10:00 09/30/18 09:30 Asa - PO 81 mg DAILY [facility] Administration Atorvastatin Calcium 10 mg 09/28/18 22:00 09/30/18 21:06 Lipitor - PO 10 mg HS [facility] Administration Calcium Acetate 667 mg 09/28/18 22:00 10/01/18 06:26 Phoslo - PO 667 mg TID [facility] Administration Heparin Sodium (Porcine) 5,000 unit 09/29/18 06:00 10/01/18 06:26 Heparin - SQ 5,000 unit TID [facility] Administration Hydralazine HCl 50 mg 09/30/18 22:00 09/30/18 21:06 Apresoline - PO 50 mg BID [facility] Administration Hydromorphone HCl 2 mg 09/28/18 21:00 10/01/18 02:18 Dilaudid - PO 2 mg Q6H [facility] Administration Sodium Chloride 250 mls @ 3,000 mls/hr 09/30/18 15:43 Normal Saline - IV 10/01/18 15:43 PRN PRN Hypotension during Dialysis Insulin Aspart 1 vial 09/28/18 22:00 10/01/18 06:27 Novolog Vial Sliding Scale - SQ 2 units ACHS [facility] Administration Protocol Non-Formulary Medication 1.2 gm 09/28/18 22:00 Mesalamine [Mesalamine] PO BID [facility] Polyethylene Glycol 17 gm 09/29/18 10:00 09/30/18 09:31 Miralax (For Daily Use) - PO Not Given DAILY [facility] Impression 1. ESRD 2. hyperkalemia 3. HTN 4. CAD 5. failed kidney transplant 6. tachycardia with junctional rythm 7. DM 8. HLD Plan - HD today - will increase HD time to 4 hours today - renal diet - repeat labs in am - cardio follow up - beata on hold secondary to recurrent hyperkalemia - hydralazine increased to 50 mg q 12 hrs - volume status is stable
[2018-10-01] MEDS: ASCORBIC ACID 500 MG TABLET (FP) PO SCH (11:28)
[2018-10-01] MEDS: ASPIRIN 81 MG CHEWABLE TABLETS PO SCH (11:28)
[2018-10-01] MEDS: hydrALAZINE HCL 50 MG TABLET (FP) PO SCH (11:28)
[2018-10-01] MEDS: POLYETHYLENE GLYCOL 3350 119 GM BTL PO SCH (11:31)
--- NOTE | 2018-10-01 11:54 | DS ---
Physical Exam: SUBJECTIVE: Patient seen and examined this morning while receiving Dialysis. No new complaints. No acute overnight events as per nursing. OBJECTIVE: Vital Signs Period Temp Pulse Resp BP Sys/Pillai Pulse Ox Last 24 Hr 97.7 F-98.2 F 61-73 18-20 132-165/59-78 95-96 PHYSICAL EXAM GENERAL: A&Ox3, NAD HEAD: NCAT EYES: PERRL, EOMI ENT: Oropharynx clear without exudates, moist mucous membranes. NECK: No JVD LUNGS: CTAB, no wheezes HEART: Regular rate and rhythm, S1, S2 without murmur ABDOMEN: Obese, Soft, nontender, nondistended, + bowel sounds, no guarding EXTREMITIES: Left BKA wearing prosthetic leg. RLE wound on the posterior heel covered in gauze. Wound is nontender, without active drainage, no surrounding erythema NEUROLOGICAL: Cranial nerves II through XII grossly intact. Normal speech. SKIN: Warm, dry LABS Laboratory Last Values WBC 5.6 K/mm3 (4.0-10.0) 10/01/18 07:00 RBC 3.56 M/mm3 (3.60-5.2) L 10/01/18 07:00 Hgb 9.3 GM/dL (10.7-15.3) L 10/01/18 07:00 Hct 30.2 % (32.4-45.2) L 10/01/18 07:00 MCV 84.6 fl (80-96) 10/01/18 07:00 MCH 26.2 pg (25.7-33.7) 10/01/18 07:00 MCHC 31.0 g/dl (32.0-36.0) L 10/01/18 07:00 RDW 20.0 % (11.6-15.6) H 10/01/18 07:00 Plt Count 209 K/MM3 (134-434) 10/01/18 07:00 MPV 8.1 fl (7.5-11.1) 10/01/18 07:00 Absolute Neuts (auto) 2.3 K/mm3 (1.5-8.0) 09/30/18 06:50 Neutrophils % 48.1 % (42.8-82.8) 09/30/18 06:50 Lymphocytes % 38.5 % (8-40) 09/30/18 06:50 Monocytes % 8.0 % (3.8-10.2) 09/30/18 06:50 Eosinophils % 4.3 % (0-4.5) 09/30/18 06:50 Basophils % 1.1 % (0-2.0) 09/30/18 06:50 Nucleated RBC % 0 % (0-0) 09/30/18 06:50 PT with INR 11.80 SEC (9.7-13.0) 09/28/18 16:36 INR 1.00 (0.83-1.09) 09/28/18 16:36 PTT (Actin FS) 31.7 SECONDS (25.2-36.5) 09/28/18 16:36 Sodium 135 mmol/L (136-145) L 10/01/18 07:00 Potassium 5.6 mmol/L (3.5-5.1) H 10/01/18 07:00 Chloride 97 mmol/L (98-107) L 10/01/18 07:00 Carbon Dioxide 24 mmol/L (21-32) 10/01/18 07:00 Anion Gap 15 MMOL/L (8-16) 10/01/18 07:00 BUN 106 mg/dL (7-18) H* 10/01/18 07:00 Creatinine 11.7 mg/dL (0.55-1.3) H* 10/01/18 07:00 Creat Clearance w eGFR 3.34 (>60) 10/01/18 07:00 POC Glucometer 258 UNITS (80-120) 10/01/18 11:30 Random Glucose 141 mg/dL (74-106) H 10/01/18 07:00 Calcium 8.1 mg/dL (8.5-10.1) L 10/01/18 07:00 Phosphorus 8.7 mg/dL (2.5-4.9) H 09/30/18 19:05 Magnesium 2.3 mg/dL (1.8-2.4) 09/30/18 19:05 Total Bilirubin 0.3 mg/dL (0.2-1) 09/30/18 06:00 AST 16 U/L (15-37) 09/30/18 06:00 ALT 17 U/L (13-61) 09/30/18 06:00 Alkaline Phosphatase 153 U/L (45-117) H 09/30/18 06:00 Troponin I 0.13 ng/ml (0.00-0.05) H 09/30/18 23:34 Total Protein 6.8 g/dl (6.4-8.2) 09/30/18 06:00 Albumin 2.8 g/dl (3.4-5.0) L 09/30/18 06:00 Hep C Ab Diagnostic <0.1 s/co ratio (0.0-0.9) 09/28/18 22:20 IMAGING: -CXR: Large heart. Congestive changes. -EKG (09/29): ACCELERATED JUNCTIONAL RHYTHM, LEFT AXIS DEVIATION, VR 118, QTc 507 -EKG (09/30): NORMAL SINUS RHYTHM, LEFT AXIS DEVIATION, NONSPECIFIC ST AND T WAVE ABNORMALITY, VR 71, QTc 475 HOSPITAL COURSE: Date of Admission:09/28/18 Date of Discharge: 10/01/18 57 y/o F was brought from Dialysis for tachycardia. Patient was found to have mildly elevated Trops on admission which remained stable during her stay. She was monitored on Tele and found to have a Junctional Tachycardia. Cardiology was consulted and recommended outpatient event monitoring. Nephrology was consulted and patient received dialysis during her stay. Patients home dose Lisinopril was held as she kept becoming hyperkalemic. Her home dose Hydralazine was increased to 50mg BID and her BP remained controlled. Patient received her scheduled Monday session of HD and was discharged home. Minutes to complete discharge: 40 Discharge Summary Reason For Visit: CHEST PAIN,TACHYCARDIA,END STAGE RENAL FAILURE ON Current Active Problems DVT prophylaxis (Acute) Elevated troponin (Acute) Hyperkalemia (Acute) CHF (congestive heart failure) (Chronic) DM type 2 causing ESRD (Chronic) ESRD (end stage renal disease) (Chronic) HLD (hyperlipidemia) (Chronic) HTN (hypertension) (Chronic) Condition: Stable - Instructions Diet, Activity, Other Instructions: You presented to the hospital with Tachycardia. One of your cardiac enzymes was elevated and you were seen by cardiology. Physician Follow ups 1. PCP: In one week, please call to schedule follow up; Please avoid beta blockers like Lopressor, Metoprolol, Coreg unless ok by the lead caregiver 2. Cardiology: Dr. Howe in one week as you need to have event heart monitoring to diagnose your fast heart rhythm. 3. Nephrology: Dr. Box in one week Please continue to monitor your foot wound for signs of infection including erythema, drainage, warmth or pain. Please follow up with your PCP to further manage. Please continue all other medications as prescribed. Your hydralazine dose has been increased to 50mg twice a day. Please return to the ER if you have any signs or symptoms of chest pain, shortness of breath, uncontrollable fever, chills, nausea, vomiting, numbness, tingling, or weakness in any part of your body, changes in vision, or slurred speech. Please return to the ER if symptoms persist, worsen, or new symptoms arise. Referrals: [place] [Primary Care Provider] - 1 Week Gato Howe MD [Staff Physician] - 1 Week Genaro Box MD [Staff Physician] - 1 Week Disposition: HOME - Home Medications Comprehensive Discharge Medication List: Ambulatory Orders Amitriptyline HCl [Elavil -] 75 mg PO HS 09/28/18 Ascorbic Acid [Vitamin C -] 500 mg PO DAILY 09/28/18 Aspirin [ASA -] 81 mg PO DAILY 09/28/18 Calcium Acetate 667 mg PO TID 09/28/18 HYDROmorphone [Dilaudid -] 2 mg PO Q6H 09/28/18 Insulin Glargine,Hum.rec.anlog [Basaglar Kwikpen U-100] 5 unit SQ DAILY Lisinopril [Prinivil] 10 mg PO DAILY 09/28/18 Lisinopril [Prinivil] 10 mg PO HS 09/28/18 Magnesium Hydrox 2400MG/30Ml [Milk of Magnesia -] 5 ml PO ASDIR 09/28/18 Mesalamine 1.2 gm PO BID 09/28/18 Polyethylene Glycol 3350 [Miralax 119 gm Btl -] 17 gm PO DAILY 09/28/18 Simvastatin [Zocor -] 20 mg PO HS 09/28/18 hydrALAZINE HCL [Apresoline -] 50 mg PO BID #60 tablet 10/01/18 This patient is new to me today: No Emergency Visit: Yes ED Registration Date: 09/28/18 Care time: The patient presented to the Emergency Department on the above date and was hospitalized for further evaluation of their emergent condition. Critical Care patient: No - Discharge Referral Referred to [facility] Med P.C.: No
[2018-10-01 12:08] VITALS: BP 167/80; PULSE 68
[2018-10-02 00:06] LABS: HBSAG SCREEN Negative (Negative); HEP A AB, IGM Negative (Negative); HEP B CORE AB, TOT Negative (Negative)
--- NOTE | 2018-10-02 07:58 | PN ---
Teaching Attending Note Name of Resident: Ashlyn Sandoval ATTENDING PHYSICIAN STATEMENT I saw and evaluated the patient. I reviewed the resident's note and discussed the case with the resident. I agree with the resident's findings and plan as documented. SUBJECTIVE: patient is comfortable with no acute distress. OBJECTIVE: Vital Signs Temperature 98 F 10/01/18 08:30 Pulse Rate 68 10/01/18 11:10 Respiratory Rate 18 10/01/18 11:10 Blood Pressure 167/80 10/01/18 11:10 O2 Sat by Pulse Oximetry (%) 96 10/01/18 05:59 EYES: PERRL, extraocular movements intact, sclera anicteric, ENT:moist mucous membranes.NECK:supple. FROM LUNGS: CTA B/L , no wheezes, no crackles, no accessory muscle use. HEART: Regular rate and rhythm, S1, S2 , 2/6 systolic murmur RUSB ,No rub or gallop. ABDOMEN: Obese , Soft, ND,NT , BS positive , no guarding, no rebound, EXTREMITIES: Left BkA , right foot podiatry shoe NEUROLOGICAL: no focal deficit . Normal speech, PSYCH: Normal mood, normal affect. SKIN: Warm, dry, normal turgor. CBCD WBC 5.6 K/mm3 (4.0-10.0) 10/01/18 07:00 RBC 3.56 M/mm3 (3.60-5.2) L 10/01/18 07:00 Hgb 9.3 GM/dL (10.7-15.3) L 10/01/18 07:00 Hct 30.2 % (32.4-45.2) L 10/01/18 07:00 MCV 84.6 fl (80-96) 10/01/18 07:00 MCHC 31.0 g/dl (32.0-36.0) L 10/01/18 07:00 RDW 20.0 % (11.6-15.6) H 10/01/18 07:00 Plt Count 209 K/MM3 (134-434) 10/01/18 07:00 MPV 8.1 fl (7.5-11.1) 10/01/18 07:00 CMP Sodium 135 mmol/L (136-145) L 10/01/18 07:00 Potassium 5.6 mmol/L (3.5-5.1) H 10/01/18 07:00 Chloride 97 mmol/L (98-107) L 10/01/18 07:00 Carbon Dioxide 24 mmol/L (21-32) 10/01/18 07:00 Anion Gap 15 MMOL/L (8-16) 10/01/18 07:00 BUN 106 mg/dL (7-18) H* 10/01/18 07:00 Creatinine 11.7 mg/dL (0.55-1.3) H* 10/01/18 07:00 Creat Clearance w eGFR 3.34 (>60) 10/01/18 07:00 Random Glucose 141 mg/dL (74-106) H 10/01/18 07:00 Calcium 8.1 mg/dL (8.5-10.1) L 10/01/18 07:00 Total Bilirubin 0.3 mg/dL (0.2-1) 09/30/18 06:00 AST 16 U/L (15-37) 09/30/18 06:00 ALT 17 U/L (13-61) 09/30/18 06:00 Alkaline Phosphatase 153 U/L (45-117) H 09/30/18 06:00 Total Protein 6.8 g/dl (6.4-8.2) 09/30/18 06:00 Albumin 2.8 g/dl (3.4-5.0) L 09/30/18 06:00 CARDIAC ENZYMES Troponin I 0.13 ng/ml (0.00-0.05) H 09/30/18 23:34 Home Medications Medication Instructions Recorded Amitriptyline HCl [Elavil -] 75 mg PO HS 09/28/18 Ascorbic Acid [Vitamin C -] 500 mg PO DAILY 09/28/18 Aspirin [ASA -] 81 mg PO DAILY 09/28/18 Calcium Acetate 667 mg PO TID 09/28/18 HYDROmorphone [Dilaudid -] 2 mg PO Q6H 09/28/18 Insulin Glargine,Hum.rec.anlog 5 unit SQ DAILY 09/28/18 [Basaglar Kwikpen U-100] Lisinopril [Prinivil] 10 mg PO DAILY 09/28/18 Lisinopril [Prinivil] 10 mg PO HS 11/09/18 Magnesium Hydrox 2400MG/30Ml [Milk 5 ml PO ASDIR 09/28/18 of Magnesia -] Mesalamine 1.2 gm PO BID 09/28/18 Polyethylene Glycol 3350 [Miralax 17 gm PO DAILY 09/28/18 119 gm Btl -] Simvastatin [Zocor -] 20 mg PO HS 09/28/18 hydrALAZINE HCL [Apresoline -] 50 mg PO BID #60 tablet 10/01/18 ASSESSMENT AND PLAN: Patient is a 57 year old woman with history of ESRD, 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 #Elevated troponin, most likely demand ischemia as per hemodialysis lab technician and not an ACS. Cardio consult appreciated. # Junctional Rhythm no BB or AvN blockade as per hemodialysis lab technician , will follow with hemodialysis lab technician; recommend out patient event monitoring to determine how often she has junctional tachycardia. Presently in NSR with first degree AVB # ESRD , nephro for HD , nephro # Hyperkalemia, resolved after HD #HTN continue home meds. #HLD :continue Statin therapy. #T2DM : sliding scale with coverage #DVT prophylaxis: heparin 5K units TID will discharge patient home today.
== END 2018-10-01 12:54 | disposition home or self-care (01) ==
LOC: JER 15:47 → JERBED 19:56 → J4S 21:37
PROVIDERS: ADMIT Internal Medicine; ATTEND Internal Medicine
PROC: 3E033GC Introduction of Other Therapeutic Substance into Peripheral Vein, Percutaneous Approach (ICD-10-PCS; principal; 2018-09-28)
PROC: 3E013VG Introduction of Insulin into Subcutaneous Tissue, Percutaneous Approach (ICD-10-PCS; 2018-09-28)
PROC: 3E013GC Introduction of Other Therapeutic Substance into Subcutaneous Tissue, Percutaneous Approach (ICD-10-PCS; 2018-09-28)
DX: R00.0 Tachycardia, unspecified (principal); E11.22 Type 2 diabetes mellitus with diabetic chronic kidney disease; I12.0 Hypertensive chronic kidney disease with stage 5 chronic kidney disease or end stage renal disease; N18.6 End stage renal disease; Z99.2 Dependence on renal dialysis; Z79.4 Long term (current) use of insulin; T86.12 Kidney transplant failure; R78.5 Finding of other psychotropic drug in blood; Z89.512 Acquired absence of left leg below knee; R07.9 Chest pain, unspecified; D64.9 Anemia, unspecified; R77.0 Abnormality of albumin; E66.9 Obesity, unspecified; Z68.41 Body mass index [BMI] 40.0-44.9, adult; I25.10 Atherosclerotic heart disease of native coronary artery without angina pectoris; I50.9 Heart failure, unspecified; I11.0 Hypertensive heart disease with heart failure; R77.8 Other specified abnormalities of plasma proteins; E87.5 Hyperkalemia; I49.8 Other specified cardiac arrhythmias; L97.419 Non-pressure chronic ulcer of right heel and midfoot with unspecified severity
CPT/HCPCS: 36415; 71045-TC-FY; 80048; 80053; 82962; 83735; 84100; 84484; 85025; 85027; 85610; 85730; 86704; 86706; 86708; 86803; 87340; 93005; 93010; 99284-25; G0378; J1644